=== PATIENT | male | born 1950 | race Caucasian/White ===

== ENCOUNTER 2016-08-17 04:42 | Emergency (ER) | payer SELFPAY ==
[2016-08-17] MEDS ORDERED: ASPIRIN 81 MG TABLET, CHEWABLE PO ONE (04:43)
[2016-08-17 05:14] LABS: ABSOLUTE BASOPHILS # (AUTO) 0.1 10^3/uL (0.0-0.2); ABSOLUTE LYMPHOCYTES (AUTO) 0.7 10^3/uL (0.5-4.7); BASOPHILS % (AUTO) 0.7 % (0-2); EOSINOPHILS % (AUTO) 0.6 % (0-6); HEMATOCRIT 42.5 % (37.9-51.0); HEMOGLOBIN 14.2 g/dL (13.5-17.0); HGB HCT DIFFERENCE 0.1; LYMPHOCYTES % (AUTO) 9.4 % (13-45); MEAN CORPUSCULAR HEMOGLOBIN 29.7 pg (27.0-33.4); MEAN CORPUSCULAR HGB CONC 33.4 g/dL (32.0-36.0); MEAN CORPUSCULAR VOLUME 89 fl (80-97); MONOCYTES % (AUTO) 12.7 % (3-13); RED BLOOD COUNT 4.77 10^6/uL (4.35-5.55); RED CELL DISTRIBUTION WIDTH 14.8 % (11.5-14.0); SEGMENTED NEUTROPHILS % (AUTO) 76.6 % (42-78); WHITE BLOOD COUNT 7.8 10^3/uL (4.0-10.5)
--- NOTE | 2016-08-17 05:14 | ER Document Report ---
Doctor's Note Notes: 08/17/16 05:13 I performed a quick triage evaluation the patient. He is a 65-year-old male who is sent in for chest pain. Patient himself is not a very good historian. Patient says he feels fine. He cannot really tell me if he had chest pain earlier or not. He denies any pain at this time. He has no complaints. He does have pain is reproducible to palpation on the left side of his chest. The nurses have triage ordered a cardiac workup. Patient will be placed on a monitor his initial EKG shows no ischemic changes. Dictation of this chart was performed using voice recognition software; therefore, there may be some unintended grammatical errors.
--- NOTE | 2016-08-17 05:31 | ER Document Report ---
ED General - General Chief Complaint: Chest Wall Pain Stated Complaint: CHEST PAIN Time Seen by Provider: 08/17/16 05:21 Mode of Arrival: Medic Information source: Relative - Spoke with via telephone Cannot obtain history due to: Dementia - Patient unable to give history spoke with on the telephone also used [facility] records Notes: 65-year-old male presented to ED via EMS due to staff at the [facility] stating he had chest pain. Patient denies any pain in the emergency room. Spoke with his to get medical history when she called to check on him. She states she only medical history he has are also, his depression anxiety and peripheral neuropathy. She states she's had his appendix out he's had knee surgery and he had skin cancers removed. She states otherwise he is very healthy. She does state that he is allergic to morphine and he was a former smoker. She states she lives 3-4 hours away and got a call about 4:00 that he was having chest pain and she was very concerned so she called to check to see how he was. TRAVEL OUTSIDE OF THE [place] IN LAST 30 DAYS: No - HPI Onset: Yesterday Onset/Duration: Gone Quality of pain: No pain Severity: None Pain Level: Denies Associated symptoms: None Exacerbated by: Denies Relieved by: Denies Similar symptoms previously: No Recently seen / treated by doctor: Yes - Related Data Allergies/Adverse Reactions: morphine Adverse Reaction (Unknown, Verified 08/17/16 05:53) Past Medical History - General Information source: Relative - , Emergency Med Personnel Cannot obtain history due to: Dementia - Social History Smoking Status: Former Smoker Cigarette use (# per day): No Chew tobacco use (# tins/day): No Smoking Education Provided: No Frequency of alcohol use: None Drug Abuse: None Lives with: Other - Alzheimer[facility] facility Family History: Other - Unable to obtain patient has demented Patient has suicidal ideation: No Patient has homicidal ideation: No - Past Medical History Cardiac Medical History: Reports: None Pulmonary Medical History: Reports: None EENT Medical History: Reports: None Neurological Medical History: Reports: Other - Alzheimer's and dementia Endocrine Medical History: Reports: None Renal/ Medical History: Reports: None Malignancy Medical History: Reports Hx Skin Cancer GI Medical History: Reports: None Musculoskeltal Medical History: Reports Hx Musculoskeletal Trauma Skin Medical History: Reports None Psychiatric Medical History: Reports: Hx Anxiety, Hx Dementia, Hx Depression Traumatic Medical History: Reports: None Infectious Medical History: Reports: None Past Surgical History: Reports: Hx Appendectomy, Hx Orthopedic Surgery - Knee surgery about 40 years ago or more according to , Other - Removal of skin cancer - Immunizations Immunizations up to date: Yes Review of Systems - Review of Systems Constitutional: No symptoms reported EENT: No symptoms reported Cardiovascular: No symptoms reported Respiratory: No symptoms reported Gastrointestinal: No symptoms reported Genitourinary: No symptoms reported Male Genitourinary: No symptoms reported Musculoskeletal: No symptoms reported Skin: No symptoms reported Hematologic/Lymphatic: No symptoms reported Neurological/Psychological: Dementia -: Yes All other systems reviewed and negative Physical Exam - Vital signs Vitals: Pulse Ox 99 08/17/16 04:43 Interpretation: Normal - General General appearance: Appears well, Alert - HEENT Head: Normocephalic, Atraumatic Eyes: Normal Pupils: PERRL - Respiratory Respiratory status: No respiratory distress Chest status: Nontender Breath sounds: Normal Chest palpation: Normal - Cardiovascular Rhythm: Regular Heart sounds: Normal auscultation Murmur: No - Abdominal Inspection: Normal Distension: No distension Bowel sounds: Normal Tenderness: Nontender Organomegaly: No organomegaly - Back Back: Normal, Nontender - Extremities General upper extremity: Normal inspection, Nontender, Normal color, Normal ROM , Normal temperature General lower extremity: Normal inspection, Nontender, Normal color, Normal ROM , Normal temperature, Normal weight bearing. No: Ludmila's sign - Neurological Neuro grossly intact: Yes Cognition: Confused, Other - Dementia Orientation: Disoriented to person, Disoriented to place, Disoriented to time, Disoriented to events Deepwater Coma Scale Eye Opening: Spontaneous [place] Coma Scale Verbal: None - He has dementia Deep[place] Coma Scale Motor: None - He moves arms and legs freely but has dementia and does not answer or follow instructions [place] Coma Scale Total: 6 Motor strength normal: LUE, RUE, LLE, RLE Sensory: Normal - Psychological Associated symptoms: Normal affect, Normal mood - Skin Skin Temperature: Warm Skin Moisture: Dry Skin Color: Normal Course - Re-evaluation Re-evalutation: 08/17/16 06:[address] Beckwith was can results of labs x-ray and with conversation to patient's . We'll discharge back to the arc as patient is not having any signs or symptoms of any cardiac event. - Vital Signs Vital signs: Temp Pulse Resp BP Pulse Ox 97.8 F 59 L 16 132/75 H 99 08/17/16 05:09 08/17/16 05:09 08/17/16 05:09 08/17/16 05:09 08/17/16 05:09 - Laboratory Result Diagrams: 08/17/16 04:55 08/17/16 05:49 Laboratory results interpreted by me: 08/17/16 04:55 RDW 14.8 H Lymphocytes % 9.4 L - Diagnostic Test Radiology reviewed: Image reviewed, Reports reviewed - EKG Interpretation by Me EKG shows normal: Sinus rhythm Rate: Normal Rhythm: NSR [place]/QRS: Left axis deviation Discharge - Discharge Clinical Impression: Chest wall pain Condition: Stable Disposition: HOME-SNF (ED ONLY) Additional Instructions: CHEST WALL PAIN: Your chest pain may be coming from the chest wall. This is often caused by straining the muscles or joints in the chest during physical activity, direct trauma, coughing, or vigorous vomiting. Persons with arthritis are especially prone to this type of pain, due to inflammation of the cartilage joints near the breast bone. Occasionally, no cause can be found. Rest from strenuous physical activity. This kind of chest pain is usually made worse by movement of the chest. Depending on the symptoms, we may prescribe medicine for pain, muscle relaxation, and antiinflammatory effects. If the pain is new, and seems to be due to muscle strain, cold packs can help. Otherwise, apply gentle warmth to the painful area for 15 minutes every hour or two. You should call contact the doctor immediately if things change. Further evaluation is needed if you develop a fever or cough, if the nature of the pain changes, or if you become short of breath. NORMAL EXAM AND WORKUP: At this time, your examination and workup show no significant abnormality. No significant abnormal physical findings were noted. All laboratory, EKG, and imaging (x-ray, CT scans, ultrasound) studies that were ordered show no significant abnormality. Although your examination and all studies that were ordered showed no significant abnormal finding, there are no examinations and no studies that are 100% accurate. There is always the possibility that some abnormality could exist and not be detected with physical examination or within the limits and capabilities of laboratory and other studies. You should return or follow up as you were instructed on your visit today for further evaluation if your symptoms do not resolve. Continue all current medications and treatments as prescribed by his primary doctor. Patient has negative chest x-ray negative labs and get of assessment. He will be returning to the ER with a copy of his labs and chest x-ray reports. FOLLOW-UP CARE: If you have been referred to a physician for follow-up care, call the physician s office for an appointment as you were instructed or within the next two days. If you experience worsening or a significant change in your symptoms, notify the physician immediately or return to the Emergency Department at any time for re-evaluation. Please follow-up with his primary doctor within the next 24-48 hours. Forms: Elevated Blood Pressure Referrals: SANDER REYES PA-C [NO LOCAL MD] - Follow up as needed
[2016-08-17 05:42] LABS: TROPONIN I < 0.012 ng/mL
[2016-08-17 06:11] LABS: ALANINE AMINOTRANSFERASE 32 U/L (21-72); ALBUMIN 3.9 g/dL (3.5-5.0); ALKALINE PHOSPHATASE 64 U/L (38-126); ANION GAP 10 (5-19); ASPARTATE AMINO TRANSFERASE 21 U/L (17-59); BILIRUBIN,DIRECT 0.3 mg/dL (0.0-0.4); BILIRUBIN,TOTAL 0.8 mg/dL (0.2-1.3); BLOOD UREA NITROGEN 12 mg/dL (7-20); CALCIUM 9.2 mg/dL (8.4-10.2); CARBON DIOXIDE 29 mmol/L (22-30); CHLORIDE 103 mmol/L (98-107); CREATINE KINASE 131 U/L (55-170); CREATININE RESULT 0.75 mg/dL (0.52-1.25); GLUCOSE 105 mg/dL (75-110); POTASSIUM 3.9 mmol/L (3.6-5.0); SODIUM 141.6 mmol/L (137-145); TOTAL PROTEIN 6.8 g/dL (6.3-8.2)
[2016-08-17 08:13] VITALS: BP 114/78
--- NOTE | 2016-08-17 17:02 | EKG REPORT ---
SEVERITY:- BORDERLINE ECG - SINUS RHYTHM LEFT AXIS DEVIATION BORDERLINE R WAVE PROGRESSION, ANTERIOR LEADS : Confirmed by: Ai Quarles 17-Aug-2016 17:01:24
== END 2016-08-17 08:47 ==
LOC: ER 04:42
DX: R07.89 Other chest pain (principal); G30.9 Alzheimer's disease, unspecified; F02.80 Dementia in other diseases classified elsewhere, unspecified severity, without behavioral disturbance, psychotic disturbance, mood disturbance, and anxiety; Z88.6 Allergy status to analgesic agent; Z85.828 Personal history of other malignant neoplasm of skin; Z87.891 Personal history of nicotine dependence
CPT/HCPCS: 36415; 71010; 80053; 82550; 82553; 84484; 85025; 93005; 93010; 99285

== ENCOUNTER 2016-09-02 00:43 | Emergency (ER) | payer MEDICARE ==
[2016-09-02] MEDS ORDERED: BACITRACIN ZINC OINTMENT 15 GM TP ONE (01:15)
--- NOTE | 2016-09-02 01:23 | ER Document Report ---
ED General - General Chief Complaint: Head Injury Stated Complaint: FALL, HEAD PAIN Time Seen by Provider: 09/02/16 01:06 Mode of Arrival: Medic Information source: Patient, Outside Facility Records Cannot obtain history due to: Dementia TRAVEL OUTSIDE OF THE [place] IN LAST 30 DAYS: No - HPI Notes: Patient is a 65-year-old male history of dementia comes from local group home with report that he fell out of his bed and was found on the ground with some bleeding from his right scalp. Patient has little recollection of the event, but staff at the group home states he is at his mental status baseline. Patient denies any headache, neck pain, chest pain, abdominal pain. There is no vomiting. No lethargy. nursing staff will look up and assess when his last tetanus shot was. - Related Data Allergies/Adverse Reactions: morphine Adverse Reaction (Unknown, Verified 08/17/16 05:53) Past Medical History - General Information source: Patient, Emergency Med Personnel Cannot obtain history due to: Dementia - Social History Smoking Status: Never Smoker Frequency of alcohol use: None Drug Abuse: None Lives with: [facility] Family History: Reviewed & Not Pertinent, Other - Unable to obtain patient has demented Renal/ Medical History: Denies: Hx Peritoneal Dialysis Malignancy Medical History: Reports Hx Skin Cancer Musculoskeltal Medical History: Reports Hx Musculoskeletal Trauma Psychiatric Medical History: Reports: Hx Anxiety, Hx Dementia, Hx Depression Past Surgical History: Reports: Hx Appendectomy, Hx Orthopedic Surgery - Knee surgery about 40 years ago or more according to , Other - Removal of skin cancer - Immunizations Immunizations up to date: Yes Hx Diphtheria, Pertussis, Tetanus Vaccination: Yes Review of Systems - Review of Systems Notes: REVIEW OF SYSTEMS: Somewhat questionable given the patient's dementia, but he does respond to questions. CONSTITUTIONAL : Denies fever, chills, or sweats. Denies recent illness. EENT: Denies eye, ear, throat, or mouth pain or symptoms. Denies nasal or sinus congestion or discharge. Denies throat, tongue, or mouth swelling or difficulty swallowing. CARDIOVASCULAR: Denies chest pain. Denies ankle edema. RESPIRATORY: Denies cough, cold, or chest congestion. Denies shortness of breath, difficulty breathing, or wheezing. GASTROINTESTINAL: Denies abdominal pain or distention. Denies nausea, vomiting , or diarrhea. Denies constipation. GENITOURINARY: Denies difficulty urinating, painful urination, burning, frequency, blood in urine, or discharge. MUSCULOSKELETAL: Denies back or neck pain or stiffness. Denies joint pain or swelling. SKIN: Contusion with abrasion/mild bleeding right scalp. HEMATOLOGIC : Denies easy bruising or bleeding. LYMPHATIC: Denies swollen, enlarged glands. NEUROLOGICAL: Denies passing out or loss of consciousness. Denies dizziness or lightheadedness. Denies headache. Denies weakness or paralysis or loss of use of either side. Denies sensory loss, numbness, or tingling. Denies seizures. Chronic dementia with some difficulty walking and speech deficits which are chronic. PSYCHIATRIC: Denies anxiety or stress. Denies depression, suicidal ideation, or homicidal ideation. ALL OTHER SYSTEMS REVIEWED AND NEGATIVE. Dictation was performed using [email or web address] recognition software Physical Exam - Notes Notes: PHYSICAL EXAMINATION: GENERAL: Well-appearing, well-nourished and in no acute distress. HEAD: Right scalp contusion and superficial abrasion. No obvious laceration noted. Bleeding has subsided. Otherwise atraumatic normocephalic. EYES: Pupils equal round and reactive to light, extraocular movements intact, sclera anicteric, conjunctiva are normal. ENT: Nares patent, oropharynx clear without exudates. Moist mucous membranes. NECK: Normal range of motion, supple without lymphadenopathy LUNGS: Breath sounds clear to auscultation bilaterally and equal. No wheezes rales or rhonchi. HEART: Regular rate and rhythm without murmurs ABDOMEN: Soft, nontender, nondistended abdomen. No guarding, no rebound. No masses appreciated. Musculoskeletal: Normal range of motion, no pitting or edema. No cyanosis. NEUROLOGICAL: Cranial nerves grossly intact. Normal sensory, motor exams. No unilateral deficits noted. Patient is alert to person, but not to place nor year. This is his baseline. No significant cerebellar ataxia. PSYCH: Normal mood, normal affect. SKIN: Warm, Dry, normal turgor, no rashes or lesions noted. Course - Re-evaluation Re-evalutation: 09/02/16 02:[address] negative for acute process. No mental status change or unilateral Neurologic findings suggestive for CVA. Antibiotic ointment applied to the wounds. Fall precautions suggested. 09/02/16 02:52 Discharge - Discharge Clinical Impression: Abrasion Head injury Qualifiers: Encounter type: initial encounter Qualified Code(s): S09.90XA - Unspecified injury of head, initial encounter Contusion Qualifiers: Encounter type: initial encounter Contusion area: head Condition: Stable Disposition: HOME-SNF (ED ONLY) Instructions: Head Injury Precautions ([facility]), Abrasions ([facility]), Abrasions of the Face ([facility]), Contusion ([facility]) Additional Instructions: Apply antibiotic ointment to the wounds twice a day as needed. Take precaution to try to prevent future falls.
--- NOTE | 2016-09-02 01:36 | RADIOLOGY REPORT (SQ) ---
EXAM DESCRIPTION: CT HEAD WITHOUT COMPLETED DATE/TIME: 09/02/2016 1:24 am REASON FOR STUDY: fall with head injury COMPARISON: None. TECHNIQUE: Axial images acquired through the brain without intravenous contrast. Images reviewed wi th bone, brain and subdural windows. Images stored on PACS. All CT scanners at this facility use dose modulation, iterative reconstruction, and/or weight based d osing when appropriate to reduce radiation dose to as low as reasonably achievable (ALARA). [facility]: Dose Right [facility]: CareDose [facility]: Dose Right [facility]: Teradose 4D [facility]: [employer] RADIATION DOSE: 55.22 mGy. LIMITATIONS: None. FINDINGS: VENTRICLES: Normal size and contour. CEREBRUM: [id number] cerebral volume loss. Mild white matter microangiopathy. CEREBELLUM: No masses. No hemorrhage. No alteration of density. No evidence for acute infarction. EXTRAAXIAL SPACES: No fluid collections. No masses. ORBITS AND GLOBE: No intra- or extraconal masses. Normal contour of globe without masses. CALVARIUM: No fracture. PARANASAL SINUSES: Moderate mucosal thickening/ mucous of the frontal sinuses and inferior left maxil radha sinus. SOFT TISSUES: No mass or hematoma. OTHER: No other significant finding. IMPRESSION: No acute findings. TECHNICAL DOCUMENTATION: JOB ID: [id number] Quality ID # [id number]: Final reports with documentation of one or more dose reduction techniques (e.g., Au tomated exposure control, adjustment of the mA and/or kV according to patient size, use of iterative reconstruction technique) 2010 [employer]- All Rights Reserved
[2016-09-02 04:00] VITALS: BP 138/74
== END 2016-09-02 04:00 ==
LOC: ER 00:43
DX: S00.03XA Contusion of scalp, initial encounter (principal); W06.XXXA Fall from bed, initial encounter; Y92.122 Bedroom in nursing home as the place of occurrence of the external cause; F03.90 Unspecified dementia, unspecified severity, without behavioral disturbance, psychotic disturbance, mood disturbance, and anxiety; Z85.828 Personal history of other malignant neoplasm of skin
CPT/HCPCS: 70450; 99284; J3490

== ENCOUNTER 2016-09-25 07:37 | Emergency (ER) | payer MEDICARE ==
--- NOTE | 2016-09-25 07:44 | ER Document Report ---
ED General - General Stated Complaint: FALL/TAIL BONE PAIN Time Seen by Provider: 09/25/16 07:39 Mode of Arrival: Medic Information source: Patient, Emergency Med Personnel, Outside Facility Records Notes: 65 yr old male presents from care facility with hx of dementia after a mechanical fall from his chair which was witnessed. pt initially complained of tail bone tenderness, currently denies any such concerns. pt denies any other injuries TRAVEL OUTSIDE OF THE [place] IN LAST 30 DAYS: No - HPI Onset: Just prior to arrival Onset/Duration: Sudden Quality of pain: Achy Severity: None Pain Level: Denies Associated symptoms: None Exacerbated by: Denies Relieved by: Denies Similar symptoms previously: No Recently seen / treated by doctor: No - Related Data Allergies/Adverse Reactions: morphine Adverse Reaction (Unknown, Verified 08/17/16 05:53) Past Medical History - Social History Smoking Status: Never Smoker Cigarette use (# per day): No Chew tobacco use (# tins/day): No Smoking Education Provided: No Family History: Reviewed & Not Pertinent, Other - Unable to obtain patient has demented Renal/ Medical History: Denies: Hx Peritoneal Dialysis Malignancy Medical History: Reports Hx Skin Cancer Musculoskeltal Medical History: Reports Hx Musculoskeletal Trauma Psychiatric Medical History: Reports: Hx Anxiety, Hx Dementia, Hx Depression Past Surgical History: Reports: Hx Appendectomy, Hx Orthopedic Surgery - Knee surgery about 40 years ago or more according to , Other - Removal of skin cancer - Immunizations Immunizations up to date: Yes Hx Diphtheria, Pertussis, Tetanus Vaccination: Yes Review of Systems - Review of Systems Notes: REVIEW OF SYSTEMS: CONSTITUTIONAL : Denies fever, chills, or sweats. Denies recent illness. EENT: Denies eye, ear, throat, or mouth pain or symptoms. Denies nasal or sinus congestion or discharge. Denies throat, tongue, or mouth swelling or difficulty swallowing. CARDIOVASCULAR: Denies chest pain. Denies palpitations or racing or irregular heart beat. Denies ankle edema. RESPIRATORY: Denies cough, cold, or chest congestion. Denies shortness of breath, difficulty breathing, or wheezing. GASTROINTESTINAL: Denies abdominal pain or distention. Denies nausea, vomiting , or diarrhea. Denies blood in vomitus, stools, or per rectum. Denies black, tarry stools. Denies constipation. GENITOURINARY: Denies difficulty urinating, painful urination, burning, frequency, blood in urine, or discharge. MUSCULOSKELETAL: Denies back or neck pain or stiffness. Denies joint pain or swelling. SKIN: Denies rash, lesions or sores. HEMATOLOGIC : Denies easy bruising or bleeding. LYMPHATIC: Denies swollen, enlarged glands. NEUROLOGICAL: Denies confusion or altered mental status. Denies passing out or loss of consciousness. Denies dizziness or lightheadedness. Denies headache. Denies weakness or paralysis or loss of use of either side. Denies problems with gait or speech. Denies sensory loss, numbness, or tingling. Denies seizures. PSYCHIATRIC: Denies anxiety or stress. Denies depression, suicidal ideation, or homicidal ideation. ALL OTHER SYSTEMS REVIEWED AND NEGATIVE. Dictation was performed using [email or web address] voice recognition software PHYSICAL EXAMINATION: GENERAL: Well-appearing, well-nourished and in no acute distress. HEAD: Atraumatic, normocephalic. EYES: Pupils equal round and reactive to light, extraocular movements intact, sclera anicteric, conjunctiva are normal. ENT: Nares patent, oropharynx clear without exudates. Moist mucous membranes. NECK: Normal range of motion, supple without lymphadenopathy LUNGS: Breath sounds clear to auscultation bilaterally and equal. No wheezes rales or rhonchi. HEART: Regular rate and rhythm without murmurs ABDOMEN: Soft, nontender, nondistended abdomen. No guarding, no rebound. No masses appreciated. Musculoskeletal: Normal range of motion, no pitting or edema. No cyanosis. NEUROLOGICAL: Normal sensorimotor exam GCS of 15, oriented to person and place currently PSYCH: Normal mood, normal affect. SKIN: Warm, Dry, normal turgor, no rashes or lesions noted. Physical Exam - Vital signs Vitals: Temp Pulse Resp BP Pulse Ox 97.4 F 57 L 20 126/67 H 96 09/25/16 07:52 09/25/16 07:52 09/25/16 07:52 09/25/16 07:52 09/25/16 07:52 Course - Re-evaluation Re-evalutation: 09/25/16 07:43 X-rays pending otherwise patient looks well is in no distress does not request any pain medication 09/25/16 08:44 X-ray is negative on my evaluation, patient otherwise looks well is ambulating with no difficulty I will discharge at this time back care facility After performing a Medical Screening Examination, I estimate there is LOW risk for INTRACRANIAL HEMORRHAGE, UNSTABLE SPINE FRACTURE, CENTRAL CORD SYNDROME, CAUDA EQUINA, THORACIC AORTIC DISSECTION, PNEUMOTHORAX, PERFORATED BOWEL, RUPTURED ABDOMINAL AORTIC ANEURYSM, ACUTE TENDON RUPTURE, COMPARTMENT SYNDROME, or OPEN FRACTURE, thus I consider the discharge disposition reasonable. Also, there is no evidence or peritonitis, sepsis, or toxicity. I have reevaluated this patient multiple times and no significant life threatening changes are noted. The patient and I have discussed the diagnosis and risks, and we agree with discharging home to follow-up with their primary doctor with the understanding that symptoms and presentations can change. We also discussed returning to the Emergency Department immediately if new or worsening symptoms occur. We have discussed the symptoms which are most concerning (e.g., bloody stool, fever, changing or worsening pain, vomiting) that necessitate immediate return. - Vital Signs Vital signs: Temp Pulse Resp BP Pulse Ox 97.4 F 57 L 20 126/67 H 96 09/25/16 07:52 09/25/16 07:52 09/25/16 07:52 09/25/16 07:52 09/25/16 07:52 - Diagnostic Test Radiology reviewed: Image reviewed, Reports reviewed - No acute fracture Discharge - Discharge Clinical Impression: Fall Qualifiers: Encounter type: initial encounter Qualified Code(s): W19.XXXA - Unspecified fall, initial encounter Contusion Qualifiers: Encounter type: initial encounter Contusion area: lower back Qualified Code(s) : S30.0XXA - Contusion of lower back and pelvis, initial encounter Condition: Stable Disposition: HOME, SELF-CARE Additional Instructions: Contusion Your injury has resulted in a contusion -- a crushing of the deep tissues. No injury to important structures was detected during the physician's exam. Contusions vary in the amount of pain they cause, and in the length of time required for healing. Typically, the area will become bruised, and will remain painful to touch for two or three weeks. However, most patients are back to working and playing within a few days. After the initial period of rest and cold-packs, your symptoms (together with the doctor's recommendations) will determine how rapidly you can get back to full activity. Usually this means "do what feels okay, but don't do things that hurt." If re-examination was recommended, it's important to follow up as instructed. Call the doctor or return any time if pain increases, if swelling becomes severe, if you develop numbness or weakness in an injured extremity, or if any other alarming symptoms occur. Follow up with your physician tomorrow for further care or return to the ED IMMEDIATELY if symptoms worsen or new concerns occur. If you cannot afford to follow up with your primary care physician a list of low cost clinics have been provided at the end of your discharge papers as well.
--- NOTE | 2016-09-25 08:58 | RADIOLOGY REPORT (SQ) ---
EXAM DESCRIPTION: SACRUM AND COCCYX COMPLETED DATE/TIME: 09/25/2016 8:05 am REASON FOR STUDY: fall COMPARISON: None. NUMBER OF VIEWS: Three views. TECHNIQUE: AP, lateral, and tilt views of the sacrum and coccyx. LIMITATIONS: Bones are osteoporotic. Artifact from the ball point pen at the upper edge of AP view, likely in the patient's clothing pocket. FINDINGS: MINERALIZATION: Osteoporotic BONES: No acute fracture or dislocation. No worrisome bone lesions. SOFT TISSUES: Surgical clips right lower quadrant. Artifact from a ball point pen over the AP view a t the upper edge of the field OTHER: Advanced osteoarthritis right hip IMPRESSION: No acute displaced fracture. Advanced osteoarthritis right hip. Bones are osteoporotic TECHNICAL DOCUMENTATION: JOB ID: [id number] [employer]- All Rights Reserved
[2016-09-25 09:31] VITALS: BP 145/78
== END 2016-09-25 09:30 | disposition home or self-care (01) ==
LOC: ER 07:37
DX: S30.0XXA Contusion of lower back and pelvis, initial encounter (principal); M53.3 Sacrococcygeal disorders, not elsewhere classified; W19.XXXA Unspecified fall, initial encounter
CPT/HCPCS: 72220; 99284

== ENCOUNTER 2016-10-04 11:09 | Emergency (ER) | payer MEDICARE ==
[2016-10-04 11:42] LABS: HEMOGLOBIN 13.4 g/dL (13.5-17.0); HGB HCT DIFFERENCE -0.8; MEAN CORPUSCULAR HEMOGLOBIN 29.8 pg (27.0-33.4); MEAN CORPUSCULAR HGB CONC 32.6 g/dL (32.0-36.0); MEAN CORPUSCULAR VOLUME 91 fl (80-97); RED BLOOD COUNT 4.49 10^6/uL (4.35-5.55); RED CELL DISTRIBUTION WIDTH 15.3 % (11.5-14.0); WHITE BLOOD COUNT 14.5 10^3/uL (4.0-10.5)
[2016-10-04 11:44] LABS: VENOUS BLOOD BASE EXCESS 2.1 mmol/L; VENOUS BLOOD HCO3 27.8 mmol/L (20-32); VENOUS BLOOD PCO2 47.5 mmHg (35-63); VENOUS BLOOD PH 7.39 (7.30-7.42)
--- NOTE | 2016-10-04 11:46 | RADIOLOGY REPORT (SQ) ---
EXAM DESCRIPTION: CHEST SINGLE VIEW COMPLETED DATE/TIME: 10/04/2016 11:38 am REASON FOR STUDY: bed 21 r/o sepsis per protocol COMPARISON: 08/17/2016 EXAM PARAMETERS: NUMBER OF VIEWS: One view. TECHNIQUE: Single frontal radiographic view of the chest acquired. RADIATION DOSE: NA LIMITATIONS: None. FINDINGS: LUNGS AND PLEURA: No opacities, masses or pneumothorax. No pleural effusion. MEDIASTINUM AND HILAR STRUCTURES: No masses. Contour normal. HEART AND VASCULAR STRUCTURES: Heart normal in size. Normal vasculature. BONES: No acute findings. HARDWARE: None in the chest. OTHER: No other significant finding. IMPRESSION: NO ACUTE RADIOGRAPHIC FINDING IN THE CHEST. TECHNICAL DOCUMENTATION: JOB ID: [id number]
[2016-10-04 11:49] LABS: PROTHROMBIN TIME 15.6 SEC (11.4-15.4)
[2016-10-04 12:07] LABS: ALANINE AMINOTRANSFERASE 30 U/L (21-72); ALBUMIN 3.5 g/dL (3.5-5.0); ALKALINE PHOSPHATASE 79 U/L (38-126); ANION GAP 9 (5-19); ASPARTATE AMINO TRANSFERASE 33 U/L (17-59); BILIRUBIN,DIRECT 0.3 mg/dL (0.0-0.4); BILIRUBIN,TOTAL 1.1 mg/dL (0.2-1.3); BLOOD UREA NITROGEN 16 mg/dL (7-20); CALCIUM 8.8 mg/dL (8.4-10.2); CARBON DIOXIDE 29 mmol/L (22-30); CHLORIDE 102 mmol/L (98-107); CREATININE RESULT 0.91 mg/dL (0.52-1.25); GLUCOSE 105 mg/dL (75-110); POTASSIUM 4.3 mmol/L (3.6-5.0); SODIUM 140.2 mmol/L (137-145); TOTAL PROTEIN 6.5 g/dL (6.3-8.2)
[2016-10-04 12:08] LABS: BASOPHILS % (MANUAL) 1 % (0-2); LYMPHOCYTES % (MANUAL) 2 % (13-45); RBC MORPHOLOGY COMMENT NORMO-CYTIC/CHROMIC; TOTAL CELLS COUNTED 100; TOXIC GRANULATION SLIGHT
[2016-10-04] MEDS ORDERED: ACETAMINOPHEN 325 MG SUPP.RECT PR ONE (12:23)
[2016-10-04 12:29] LABS: EOSINOPHILS % (MANUAL) 0 % (0-6)
[2016-10-04 12:33] LABS: APPEARANCE,URINE SLIGHTLY-CLOUDY; BILIRUBIN,URINE NEGATIVE (NEGATIVE); GLUCOSE, URINE NEGATIVE (NEGATIVE); KETONES,URINE NEGATIVE (NEGATIVE); LEUKOCYTE ESTERASE,URINE LARGE (NEGATIVE); NITRITE,URINE NEGATIVE (NEGATIVE); PROTEIN,URINE 30 mg/dL (NEGATIVE); URINE SPECIFIC GRAVITY 1.016
[2016-10-04 12:34] LABS: BACTERIA,URINE TRACE /HPF
[2016-10-04] MEDS ORDERED: CEFTRIAXONE 1 GM/D5W RTU 50 ML IV ONE (13:37)
[2016-10-04] MEDS ORDERED: NORMAL SALINE 1000 ML 1,000 ML IV ONE (13:40)
--- NOTE | 2016-10-04 13:40 | ER Document Report ---
ED General - General Chief Complaint: Altered Mental Status Stated Complaint: ALTERED MENTAL STATUS Time Seen by Provider: 10/04/16 11:36 Mode of Arrival: Ambulatory Information source: Patient Notes: Patient is a 65-year-old male who presents to the ER today from long term for possible altered mental status. Patient has a history of dementia and he states that he has "good days and bad days", bad days where he wants to get all. That is apparently what he is doing today. But they also state that today he has a fever. he has not been talking to them so they do not know if he is having any pain or other symptoms. He does not respond to questions. TRAVEL OUTSIDE OF THE [place] IN LAST 30 DAYS: No - Related Data Allergies/Adverse Reactions: morphine Adverse Reaction (Unknown, Verified 08/17/16 05:53) Past Medical History - General Information source: Patient - Social History Smoking Status: Unknown if Ever Smoked Family History: Reviewed & Not Pertinent, Other - Unable to obtain patient has demented Renal/ Medical History: Denies: Hx Peritoneal Dialysis Malignancy Medical History: Reports Hx Skin Cancer Musculoskeltal Medical History: Reports Hx Musculoskeletal Trauma Psychiatric Medical History: Reports: Hx Anxiety, Hx Dementia, Hx Depression Past Surgical History: Reports: Hx Appendectomy, Hx Orthopedic Surgery - Knee surgery about 40 years ago or more according to , Other - Removal of skin cancer - Immunizations Immunizations up to date: Yes Hx Diphtheria, Pertussis, Tetanus Vaccination: Yes Review of Systems - Review of Systems Constitutional: See HPI EENT: No symptoms reported Cardiovascular: No symptoms reported Respiratory: No symptoms reported Gastrointestinal: No symptoms reported Genitourinary: No symptoms reported Male Genitourinary: No symptoms reported Musculoskeletal: No symptoms reported Skin: No symptoms reported Hematologic/Lymphatic: No symptoms reported Neurological/Psychological: See HPI Physical Exam - Vital signs Vitals: Temp Pulse Resp BP Pulse Ox 100.7 F H 92 18 148/75 H 97 10/04/16 11:10 10/04/16 11:10 10/04/16 11:10 10/04/16 11:10 10/04/16 11:10 - Notes Notes: PHYSICAL EXAMINATION: GENERAL: Demented, in no acute distress. HEAD: Atraumatic, normocephalic. EYES: Pupils equal round and reactive to light, extraocular movements intact, sclera anicteric, conjunctiva are normal. ENT: Airway patent NECK: Normal range of motion, supple without lymphadenopathy LUNGS: CTAB and equal. No wheezes rales or rhonchi. HEART: Regular rate and rhythm without murmurs ABDOMEN: Soft, no tenderness. No guarding, no rebound BACK: no vertebral tenderness, normal ROM GI/: no CVA tenderness EXTREMITIES: no pitting edema. No cyanosis. NEUROLOGICAL: Unable to evaluate PSYCH: Unable to evaluate SKIN: Warm, Dry, normal turgor, no rashes or lesions noted Course - Re-evaluation Re-evalutation: 10/04/16 15:00 Patient has white count of 14.5, afebrile 103F rectally. Patient received rectal Tylenol, 1 fever reduced patient did wake up and start answering some questions appropriately, he did not answer all questions. Urinalysis revealed infection with large leukocytes and small blood. Patient given IV Rocephin and fluids here. Patient will be started on antibiotics and sent back to long term. Did discuss case with Dr. Landaverde who agrees with my plan. Lactic acid was normal. Vital signs other than temperature are all within normal limits. Patient is not tachycardic or hypotensive. 10/04/16 15:01 - Vital Signs Vital signs: Temp Pulse Resp BP Pulse Ox 103.1 F H 92 18 141/79 H 100 10/04/16 13:01 10/04/16 11:10 10/04/16 12:00 10/04/16 12:00 10/04/16 12:00 - Laboratory Result Diagrams: 10/04/16 11:27 10/04/16 11:27 Laboratory results interpreted by me: 10/04/16 10/04/16 10/04/16 11:12 11:27 12:00 WBC 14.5 H Hgb 13.4 L RDW 15.3 H Seg Neuts % (Manual) 94 H Lymphocytes % (Manual) 2 L Monocytes % (Manual) 2 L Abs Neuts (Manual) 13.6 H Abs Lymphs (Manual) 0.4 L PT 15.6 H Urine Protein 30 H Urine Blood SMALL H Urine Urobilinogen 8.0 H Ur Leukocyte Esterase LARGE H Discharge - Discharge Clinical Impression: UTI (urinary tract infection) Qualifiers: Urinary tract infection type: site unspecified Hematuria presence: with hematuria Qualified Code(s): N39.0 - Urinary tract infection, site not specified ; R31.9 - Hematuria, unspecified Condition: Stable Disposition: HOME, SELF-CARE Additional Instructions: Return immediately for any new or worsening symptoms. Follow up with primary care provider, call tomorrow to make followup appointment. Prescriptions: Cephalexin Monohydrate [Keflex 500 mg Capsule] 500 mg PO Q6H 10 Days
[2016-10-04 18:01] VITALS: BP 134/75
--- NOTE | 2016-10-04 18:55 | EKG REPORT ---
SEVERITY:- ABNORMAL ECG - SINUS RHYTHM LEFT ANTERIOR FASCICULAR BLOCK : Confirmed by: Ai Quarles 04-Oct-2016 18:54:32
== END 2016-10-04 18:00 ==
LOC: ER 11:09
DX: N39.0 Urinary tract infection, site not specified (principal); R31.9 Hematuria, unspecified; R50.9 Fever, unspecified; F03.90 Unspecified dementia, unspecified severity, without behavioral disturbance, psychotic disturbance, mood disturbance, and anxiety; Z85.828 Personal history of other malignant neoplasm of skin
CPT/HCPCS: 93005; 99285; 96361; 51701; 96365; 36415; 87040; 87086; 85025; 85610; 87088; 80053; 81001; 87186; 82803; 83605; 71010; 93010; A9270; J7030; J0696; J3490

== ENCOUNTER 2016-10-12 01:27 | Emergency (ER) | payer MEDICARE ==
--- NOTE | 2016-10-12 02:07 | ER Document Report ---
ED Fall - General Chief Complaint: Altered Mental Status Stated Complaint: AMS Time Seen by Provider: 10/12/16 01:54 Notes: Patient is a 65-year-old male that comes emergency department for chief complaint of altered mental status, he comes by EMS [id number] , patient was reportedly acting normally, was left for a few minutes, when staff came back he had gotten up and fallen on the floor. A bruise to the left forehead was noted. They denied change in mental status, patient has a history of dementia, he is not listed to be on a blood thinner, he is currently on antibiotic Keflex, he is treated with Risperdal, trazodone, Ativan. TRAVEL OUTSIDE OF THE [place] IN LAST 30 DAYS: No - Related data Allergies/Adverse Reactions: morphine Adverse Reaction (Unknown, Verified 08/17/16 05:53) Past Medical History - General Information source: Transfer Record, Emergency Med Personnel - Social History Smoking Status: Unknown if Ever Smoked Frequency of alcohol use: None Drug Abuse: None Lives with: Prison Family History: Reviewed & Not Pertinent, Other - Unable to obtain patient has demented Renal/ Medical History: Denies: Hx Peritoneal Dialysis Malignancy Medical History: Reports Hx Skin Cancer Musculoskeltal Medical History: Reports Hx Musculoskeletal Trauma Psychiatric Medical History: Reports: Hx Anxiety, Hx Dementia, Hx Depression Past Surgical History: Reports: Hx Appendectomy, Hx Orthopedic Surgery - Knee surgery about 40 years ago or more according to , Other - Removal of skin cancer - Immunizations Immunizations up to date: Yes Hx Diphtheria, Pertussis, Tetanus Vaccination: Yes Review of Systems - Review of Systems Constitutional: No symptoms reported EENT: No symptoms reported Cardiovascular: No symptoms reported Respiratory: No symptoms reported Gastrointestinal: No symptoms reported Genitourinary: No symptoms reported Male Genitourinary: No symptoms reported Musculoskeletal: See HPI Skin: No symptoms reported Hematologic/Lymphatic: No symptoms reported Neurological/Psychological: See HPI Physical Exam - Vital signs Vitals: Temp Pulse Resp BP Pulse Ox 97.6 F 56 L 12 147/86 H 96 10/12/16 01:32 10/12/16 01:32 10/12/16 01:32 10/12/16 01:32 10/12/16 01:32 Interpretation: Normal - General General appearance: Appears well, Alert In distress: None - HEENT Head: Normocephalic. No: Atraumatic - There is a faint bruise over the left forehead area, no swelling, no other signs of trauma Eyes: Normal Conjunctiva: Normal Extraocular movements intact: Yes Eyelashes: Normal Pupils: PERRL Ears: Normal External canal: Normal Tympanic membrane: Normal Sinus: Normal Nasal: Normal Mouth/Lips: Normal Mucous membranes: Normal Pharynx: Normal Neck: Normal - Respiratory Respiratory status: No respiratory distress Chest status: Nontender Breath sounds: Normal Chest palpation: Normal - Cardiovascular Rhythm: Regular Heart sounds: Normal auscultation Murmur: No - Abdominal Inspection: Normal Distension: No distension Bowel sounds: Normal Tenderness: Nontender Organomegaly: No organomegaly - Back Back: Normal, Nontender - Extremities General upper extremity: Normal inspection, Nontender, Normal color, Normal ROM , Normal temperature General lower extremity: Normal inspection, Nontender, Normal color, Normal ROM , Normal temperature, Normal weight bearing. No: Ludmila's sign - Neurological Neuro grossly intact: Yes Cognition: Confused Orientation: Disoriented to place, Disoriented to time, Disoriented to events. No: Disoriented to person [place] Coma Scale Eye Opening: Spontaneous [place] Coma Scale Verbal: Confused [place] Coma Scale Motor: Obeys Commands [place] Coma Scale Total: 14 Speech: Normal Cranial nerves: Normal Cerebellar coordination: Normal Motor strength normal: LUE, RUE, LLE, RLE Additional motor exam normals: Equal card folder Sensory: Normal - Psychological Associated symptoms: Normal mood. No: Normal affect - Flat affect - Skin Skin Temperature: Warm Skin Moisture: Dry Skin Color: Normal Course - Re-evaluation Re-evalutation: Patient has a flat affect, however he is cooperative, he is oriented to self, he does not have any neurological deficit on examination other than confusion which is reported to be baseline. There is a small bruise over his left forehead, CAT scan imaging unremarkable, no evidence of other injury over the rest of his exam. Patient discharged back to nursing facility with return precautions. - Vital Signs Vital signs: Temp Pulse Resp BP Pulse Ox 97.6 F 56 L 9 L 145/79 H 100 10/12/16 02:25 10/12/16 01:32 10/12/16 05:53 10/12/16 05:53 10/12/16 05:53 Discharge - Discharge Clinical Impression: Fall Qualifiers: Encounter type: initial encounter Qualified Code(s): W19.XXXA - Unspecified fall, initial encounter Head injury Qualifiers: Encounter type: initial encounter Qualified Code(s): S09.90XA - Unspecified injury of head, initial encounter Traumatic hematoma of forehead Qualifiers: Encounter type: initial encounter Qualified Code(s): S00.83XA - Contusion of other part of head, initial encounter Condition: Stable Disposition: HOME, SELF-CARE Additional Instructions: CAT scan of the head and neck show no abnormalities, vital signs unremarkable, no acute abnormalities noted other than the hematoma on the left forehead. Ice the area, Tylenol for pain if needed. Follow-up with primary care. Return to emergency department for any concerning or worsening symptoms including change in mental status, vomiting, seizure, or any other concerning symptoms.
--- NOTE | 2016-10-12 02:45 | RADIOLOGY REPORT (SQ) ---
EXAM DESCRIPTION: CT HEAD WITHOUT COMPLETED DATE/TIME: 10/12/2016 2:29 am REASON FOR STUDY: fall, head injury COMPARISON: 5.25.17 TECHNIQUE: Axial images acquired through the brain without intravenous contrast. Images reviewed wi th bone, brain and subdural windows. Images stored on PACS. All CT scanners at this facility use dose modulation, iterative reconstruction, and/or weight based d osing when appropriate to reduce radiation dose to as low as reasonably achievable (ALARA). [facility]: Dose Right [facility]: CareDose [facility]: Dose Right [facility]: Teradose 4D [facility]: Smart [employer] RADIATION DOSE: Up-to-date CT equipment and radiation dose reduction techniques were employed. CTDIv ol: 55.2 mGy. DLP: 1084 mGy-cm. mGy. LIMITATIONS: None. FINDINGS: VENTRICLES: Normal size and contour. CEREBRUM: No masses. No hemorrhage. No midline shift. Normal ashton/white matter differentiation. N o evidence for acute infarction. Moderate cerebral volume loss. Mild white matter microangiopathy p attern. CEREBELLUM: No masses. No hemorrhage. No alteration of density. No evidence for acute infarction. EXTRAAXIAL SPACES: No fluid collections. No masses. ORBITS AND GLOBE: No intra- or extraconal masses. Normal contour of globe without masses. CALVARIUM: No fracture. PARANASAL SINUSES: No fluid or mucosal thickening. SOFT TISSUES: No mass or hematoma. OTHER: No other significant finding. IMPRESSION: No acute findings. TECHNICAL DOCUMENTATION: JOB ID: [id number] Quality ID # [id number]: Final reports with documentation of one or more dose reduction techniques (e.g., Au tomated exposure control, adjustment of the mA and/or kV according to patient size, use of iterative reconstruction technique) 2010 [employer]- All Rights Reserved
--- NOTE | 2016-10-12 02:47 | RADIOLOGY REPORT (SQ) ---
EXAM DESCRIPTION: CT CERVICAL SPINE WITHOUT COMPLETED DATE/TIME: 10/12/2016 2:30 am REASON FOR STUDY: fall, head injury COMPARISON: None. TECHNIQUE: Axial images acquired through the cervical spine without intravenous contrast. Images re viewed with lung, soft tissue and bone windows. Reconstructed coronal and sagittal MPR images review ed. Images stored on PACS. All CT scanners at this facility use dose modulation, iterative reconstruction, and/or weight based d osing when appropriate to reduce radiation dose to as low as reasonably achievable (ALARA). [facility]: Dose Right [facility]: CareDose [facility]: Dose Right [facility]: Teradose 4D [facility]: Smart [employer] RADIATION DOSE: Up-to-date CT equipment and radiation dose reduction techniques were employed. CTDIv ol: 9.5 mGy. DLP: 200 mGy-cm. mGy. LIMITATIONS: None. FINDINGS: ALIGNMENT: Anatomic. Moderate rotatory levo convexity of the cervical spine. MINERALIZATION: Normal. VERTEBRAL BODIES: No fractures or dislocation. Moderate atlantoaxial osteoarthritis. DISCS: Small disc bulge/osteophyte complex at the C5-C6 level. FACETS, LATERAL MASSES, POSTERIOR ELEMENTS: No fractures. No dislocation. No acute findings. HARDWARE: None in the spine. VISUALIZED RIBS: No fractures. LUNG APICES AND SOFT TISSUES: No significant or acute findings. OTHER: No other significant finding. IMPRESSION: No acute findings. TECHNICAL DOCUMENTATION: JOB ID: [id number] Quality ID # [id number]: Final reports with documentation of one or more dose reduction techniques (e.g., Au tomated exposure control, adjustment of the mA and/or kV according to patient size, use of iterative reconstruction technique) 2010 [employer]- All Rights Reserved
[2016-10-12 06:13] VITALS: BP 145/79
== END 2016-10-12 05:57 | disposition home or self-care (01) ==
LOC: ER 01:27
DX: S00.83XA Contusion of other part of head, initial encounter (principal); W19.XXXA Unspecified fall, initial encounter; Y92.129 Unspecified place in nursing home as the place of occurrence of the external cause; F03.90 Unspecified dementia, unspecified severity, without behavioral disturbance, psychotic disturbance, mood disturbance, and anxiety; F41.9 Anxiety disorder, unspecified; F32.9 Major depressive disorder, single episode, unspecified; Z79.899 Other long term (current) drug therapy; Z85.828 Personal history of other malignant neoplasm of skin
CPT/HCPCS: 70450; 72125; 99285

== ENCOUNTER 2016-11-23 06:06 | Emergency (ER) | payer MEDICARE ==
[2016-11-23] MEDS ORDERED: LIDOCAINE 2% URO-JET 5 ML KIT MM ONE (06:47)
--- NOTE | 2016-11-23 07:52 | ER Document Report ---
ED Fall - General Chief Complaint: Fall Stated Complaint: FALL,HEAD INJURY Time Seen by Provider: 11/23/16 07:04 Mode of Arrival: Medic Information source: Emergency Med Personnel, Outside Facility Records Notes: Patient is a 66-year-old male with dementia who [facility] in a prison who presents to the ER via EMS today from the prison after they found him on the floor between 3 and 6 AM. Patient is denying any pain, does have small abrasion to the forehead, not bleeding. He denies chest pain, shortness of breath. He is at his baseline mentally. He denies any headache. He does not remember the incident, but this is his baseline. TRAVEL OUTSIDE OF THE [place] IN LAST 30 DAYS: No - Related data Allergies/Adverse Reactions: morphine Adverse Reaction (Unknown, Verified 08/17/16 05:53) Past Medical History - General Information source: Patient - Social History Smoking Status: Never Smoker Family History: Reviewed & Not Pertinent, Other - Unable to obtain patient has demented Renal/ Medical History: Denies: Hx Peritoneal Dialysis Malignancy Medical History: Reports Hx Skin Cancer Musculoskeltal Medical History: Reports Hx Musculoskeletal Trauma Psychiatric Medical History: Reports: Hx Anxiety, Hx Dementia, Hx Depression Past Surgical History: Reports: Hx Appendectomy, Hx Orthopedic Surgery - Knee surgery about 40 years ago or more according to , Other - Removal of skin cancer - Immunizations Immunizations up to date: Yes Hx Diphtheria, Pertussis, Tetanus Vaccination: Yes Review of Systems - Review of Systems Constitutional: No symptoms reported EENT: No symptoms reported Cardiovascular: No symptoms reported Respiratory: No symptoms reported Gastrointestinal: No symptoms reported Genitourinary: No symptoms reported Male Genitourinary: No symptoms reported Musculoskeletal: No symptoms reported Skin: No symptoms reported Hematologic/Lymphatic: No symptoms reported Neurological/Psychological: No symptoms reported Physical Exam - Vital signs Vitals: Pulse Ox 100 11/23/16 06:21 - Notes Notes: PHYSICAL EXAMINATION: GENERAL: Demented, in no acute distress. HEAD: Atraumatic, normocephalic. EYES: Pupils equal round and reactive to light, extraocular movements intact, sclera anicteric, conjunctiva are normal. NECK: Normal range of motion, supple without lymphadenopathy LUNGS: CTAB and equal. No wheezes rales or rhonchi. HEART: Regular rate and rhythm without murmurs ABDOMEN: Soft, no tenderness. No guarding, no rebound BACK: no vertebral tenderness, normal ROM GI/: no CVA tenderness EXTREMITIES: no pitting edema. No cyanosis. NEUROLOGICAL: Unable to assess due to dementia PSYCH: Demented SKIN: Warm, Dry, normal turgor, small abrasion to the forehead, dried blood but no active bleeding Course - Re-evaluation Re-evalutation: 11/23/16 08:25 Patient is on blood thinners, patient has not had any complaints, he was just found beside his bed in the prison today brought him here. my attending, Dr. Pereira, and I do not believe any workup is required today as he is at his baseline. 11/23/16 08:25 - Vital Signs Vital signs: Temp Pulse Resp BP Pulse Ox 98 F 58 L 16 118/83 98 11/23/16 06:32 11/23/16 06:32 11/23/16 06:32 11/23/16 06:32 11/23/16 06:32 Discharge - Discharge Clinical Impression: Fall Qualifiers: Encounter type: initial encounter Qualified Code(s): W19.XXXA - Unspecified fall, initial encounter Condition: Stable Disposition: HOME, SELF-CARE Additional Instructions: Return immediately for any new or worsening symptoms. Follow up with primary care provider, call tomorrow to make followup appointment.
--- NOTE | 2016-11-23 07:57 | EKG REPORT ---
SEVERITY:- BORDERLINE ECG - SINUS RHYTHM BORDERLINE LEFT AXIS DEVIATION BORDERLINE R WAVE PROGRESSION, ANTERIOR LEADS : Confirmed by: Kadeem Arora MD 23-Nov-2016 07:56:33
[2016-11-23 09:45] VITALS: BP 125/86
== END 2016-11-23 10:09 | disposition home or self-care (01) ==
LOC: ER 06:06
DX: S09.90XA Unspecified injury of head, initial encounter (principal); S00.81XA Abrasion of other part of head, initial encounter; F03.90 Unspecified dementia, unspecified severity, without behavioral disturbance, psychotic disturbance, mood disturbance, and anxiety; X58.XXXA Exposure to other specified factors, initial encounter; Z79.02 Long term (current) use of antithrombotics/antiplatelets; Z88.6 Allergy status to analgesic agent
CPT/HCPCS: 93005; 93010; 99284

== ENCOUNTER 2016-12-02 15:02 | Emergency (ER) | payer MEDICARE ==
--- NOTE | 2016-12-02 15:43 | ER Document Report ---
ED Fall - General Chief Complaint: Fall Stated Complaint: FALL,BACK PAIN Time Seen by Provider: 12/02/16 15:25 Mode of Arrival: Medic Information source: Transfer Record, Emergency Med Personnel Notes: This is a 66-year-old man with a history of dementia with prior falls in the past who was brought in by EMS after an unwitnessed fall at the [facility]. EMS reports that the patient was found in another resident's room and was on the floor. The patient was not complaining of any pain. In the emergency room , the patient is alert and demented and is reported to be at his baseline mental status. He denies pain. TRAVEL OUTSIDE OF THE [place] IN LAST 30 DAYS: No - HPI Occurred: Just prior to arrival Where: [facility] Context: Fell from standing Associated symptoms: None Location of injury/pain: No: Abdomen, Ankle, Back, Breast, Buttocks, Chest, Elbow, Epigastric, Face, Finger, Flank, Foot, Hand, Head, Hip, Mouth, Knee, Neck , Pelvic, Penis, Perineum, Rectum, Shoulder, Testicle, Thigh, Throat, Trunk, Vagina, Wrist, Upper extremity, Lower extremity, Other Quality of pain: No pain Severity: None Pain Level: Denies - Related data Allergies/Adverse Reactions: morphine Adverse Reaction (Unknown, Verified 08/17/16 05:53) Past Medical History - General Information source: Patient, Transfer Record, Emergency Med Personnel - Social History Smoking Status: Never Smoker Cigarette use (# per day): No Chew tobacco use (# tins/day): No Frequency of alcohol use: None Drug Abuse: None Lives with: [facility] Family History: Reviewed & Not Pertinent, Other - Unable to obtain patient has demented Patient has suicidal ideation: No Patient has homicidal ideation: No - Past Medical History Cardiac Medical History: Reports: None Pulmonary Medical History: Reports: None Neurological Medical History: Reports: Other - Dementia Renal/ Medical History: Denies: Hx Peritoneal Dialysis Malignancy Medical History: Reports Hx Skin Cancer Musculoskeltal Medical History: Reports Hx Musculoskeletal Trauma Psychiatric Medical History: Reports: Hx Anxiety, Hx Dementia, Hx Depression Past Surgical History: Reports: Hx Appendectomy, Hx Orthopedic Surgery - Knee surgery about 40 years ago or more according to , Other - Removal of skin cancer - Immunizations Immunizations up to date: Yes Hx Diphtheria, Pertussis, Tetanus Vaccination: Yes Review of Systems - Review of Systems Constitutional: denies: Chills, Fever EENT: No symptoms reported Cardiovascular: No symptoms reported Respiratory: No symptoms reported Gastrointestinal: No symptoms reported Genitourinary: No symptoms reported Male Genitourinary: No symptoms reported Musculoskeletal: No symptoms reported Skin: No symptoms reported Hematologic/Lymphatic: No symptoms reported Neurological/Psychological: See HPI Physical Exam - Vital signs Notes: Physical exam: GENERAL: This is a 66-year-old man who is alert, eyes are open, he will answer simple questions, he is reported to be at his baseline mentally which is demented. HEAD: Atraumatic, normocephalic. I palpated his whole scalp and there is no areas of tenderness. EYES: Pupils equal round and reactive to light, extraocular movements intact, sclera anicteric, conjunctiva are normal. ENT: nares patent, oropharynx clear without exudates. Moist mucous membranes. NECK: The patient's cervical spine is palpated and is nontender. Anteriorly, there are no masses. LUNGS: Breath sounds clear to auscultation bilaterally and equal. No wheezes rales or rhonchi. HEART: Regular rate and rhythm without murmurs, rubs or gallops. ABDOMEN: Soft, normoactive bowel sounds. No tenderness to palpation. No guarding, no rebound. No masses appreciated. Back: There is no tenderness over the thoracic or lumbar spine. the skin to the back appears dry, but there is no tenderness with palpation. EXTREMITIES: Normal range of motion, no pitting or edema. No clubbing or cyanosis. NEUROLOGICAL: He does move extremities without pain. PSYCH: Dementia SKIN: Warm, Dry, normal turgor, no rashes or lesions noted. Discharge - Discharge Clinical Impression: Fall Condition: Stable Disposition: HOME, SELF-CARE Additional Instructions: The patient's physical exam was quite good. The plan is to continue current medicines and return if there is any problems.
[2016-12-02 17:06] VITALS: BP 126/77
== END 2016-12-02 17:05 | disposition home or self-care (01) ==
LOC: ER 15:02
DX: M54.9 Dorsalgia, unspecified (principal); W19.XXXA Unspecified fall, initial encounter
CPT/HCPCS: 99284

== ENCOUNTER 2016-12-06 22:55 | Emergency (ER) | payer MEDICARE ==
--- NOTE | 2016-12-07 01:05 | ER Document Report ---
ED Fall - General Chief Complaint: Fall Stated Complaint: POSSIBLE FALL Time Seen by Provider: 12/06/16 23:19 Mode of Arrival: Medic Information source: Transfer Record Cannot obtain history due to: Dementia Notes: Patient was reportedly found by [facility] staff on the floor. Staff can sure if patient may have fallen or if he had gone into another room and had laid down on the floor. Patient without any obvious injuries. Patient's mental status at his baseline per nurses. TRAVEL OUTSIDE OF THE [place] IN LAST 30 DAYS: No - HPI Occurred: Just prior to arrival Where: [facility] Associated symptoms: None Quality of pain: No pain - Related data Allergies/Adverse Reactions: morphine Adverse Reaction (Unknown, Verified 08/17/16 05:53) Past Medical History - General Information source: Transfer Record Cannot obtain history due to: Dementia - Social History Smoking Status: Unknown if Ever Smoked Frequency of alcohol use: None Drug Abuse: None Lives with: [facility] Family History: Reviewed & Not Pertinent, Other - Unable to obtain patient has demented Renal/ Medical History: Denies: Hx Peritoneal Dialysis Malignancy Medical History: Reports Hx Skin Cancer Musculoskeltal Medical History: Reports Hx Musculoskeletal Trauma Psychiatric Medical History: Reports: Hx Anxiety, Hx Dementia, Hx Depression Past Surgical History: Reports: Hx Appendectomy, Hx Orthopedic Surgery - Knee surgery about 40 years ago or more according to , Other - Removal of skin cancer - Immunizations Immunizations up to date: Yes Hx Diphtheria, Pertussis, Tetanus Vaccination: Yes Review of Systems - Review of Systems -: Yes ROS unobtainable due to patient's medical condition Physical Exam - Vital signs Vitals: Temp Pulse BP Pulse Ox 97.9 F 59 L 140/78 H 99 12/06/16 23:00 12/06/16 23:00 12/06/16 23:00 12/06/16 23:00 - General General appearance: Appears well, Other - sleeping, arouses easily to tactile stimulation and voice In distress: None - HEENT Head: Normocephalic, Atraumatic. No: Abrasions, Daugherty's sign, Ecchymosis, [place]'s eyes Eyes: Normal. No: Periorbital ecchymosis Conjunctiva: Normal Ears: Normal External canal: Normal Tympanic membrane: Normal. No: Hemotympanum Nasal: Normal Mouth/Lips: Normal. No: Dental fracture Neck: Normal, Supple. No: Lymphadenopathy - Respiratory Respiratory status: No respiratory distress Chest status: Nontender Breath sounds: Normal. No: Rales, Rhonchi, Stridor, Wheezing Chest palpation: Normal - Cardiovascular Rhythm: Regular Heart sounds: S1 appreciated, S2 appreciated - Abdominal Inspection: Normal Distension: No distension Bowel sounds: Normal Tenderness: Nontender - Back Back: Normal, Nontender. No: Vertebra tenderness - Extremities General upper extremity: Normal inspection, Nontender, Normal ROM General lower extremity: Normal inspection, Nontender, Normal ROM - Neurological Cognition: Other - normal per pt's baseline - Skin Skin Temperature: Warm Skin Moisture: Dry Skin Color: Normal Course - Re-evaluation Re-evalutation: 12/07/16 01:15 Patient without any complaints of pain, patient without any objective injury, contusion, swelling, abrasion or lacerations. - Vital Signs Vital signs: Temp Pulse Resp BP Pulse Ox 98.6 F 64 126/88 H 96 12/07/16 02:09 12/07/16 02:09 12/07/16 02:09 12/07/16 02:09 Discharge - Discharge Clinical Impression: Hx of fall Condition: Stable Disposition: HOME, SELF-CARE Additional Instructions: Return immediately for any new or worsening symptoms Followup with your primary care provider, call tomorrow to make a followup appointment Referrals: ELVIS STERN MD [NO LOCAL MD] - Follow up as needed
[2016-12-07 02:31] VITALS: BP 126/88
== END 2016-12-07 02:36 | disposition home or self-care (01) ==
LOC: ER 22:55
DX: Z04.3 Encounter for examination and observation following other accident (principal); W19.XXXA Unspecified fall, initial encounter; Y92.129 Unspecified place in nursing home as the place of occurrence of the external cause; F03.90 Unspecified dementia, unspecified severity, without behavioral disturbance, psychotic disturbance, mood disturbance, and anxiety; Z85.828 Personal history of other malignant neoplasm of skin
CPT/HCPCS: 99284

== ENCOUNTER 2016-12-13 15:12 | Emergency (ER) | payer MEDICARE ==
--- NOTE | 2016-12-13 15:24 | ER Document Report ---
ED General - General Stated Complaint: WEAKNESS Time Seen by Provider: 12/13/16 15:23 TRAVEL OUTSIDE OF THE [place] IN LAST 30 DAYS: No - HPI Notes: Patient is a 66-year-old male with a history of Alzheimer's who presents the ED via EMS with reports of left lower quadrant abdominal pain. The [facility] states that the patient was complaining of left lower quadrant abdominal pain today. EMS reported that the patient declined any pain and had no rebound/ guarding to palpation of the abdomen. He has been eating and drinking without any difficulties. He is having normal bowel movements and continuing to have wet diapers. EMS and the nursing report that, otherwise, he is at his baseline for mentation/behavior/speech. Pt is a poor historian, but is denying any pain currently when reviewing each system individually. - Related Data Allergies/Adverse Reactions: morphine Adverse Reaction (Unknown, Verified 08/17/16 05:53) Past Medical History - Social History Smoking Status: Unknown if Ever Smoked Family History: Reviewed & Not Pertinent, Other - Unable to obtain patient has demented Renal/ Medical History: Denies: Hx Peritoneal Dialysis Malignancy Medical History: Reports Hx Skin Cancer Musculoskeltal Medical History: Reports Hx Musculoskeletal Trauma Psychiatric Medical History: Reports: Hx Anxiety, Hx Dementia, Hx Depression Past Surgical History: Reports: Hx Appendectomy, Hx Orthopedic Surgery - Knee surgery about 40 years ago or more according to , Other - Removal of skin cancer - Immunizations Immunizations up to date: Yes Hx Diphtheria, Pertussis, Tetanus Vaccination: Yes Review of Systems - Review of Systems Notes: see HPI- -: Yes ROS unobtainable due to patient's medical condition Physical Exam - Vital signs Vitals: Temp Pulse Resp BP Pulse Ox 97.3 F 80 16 113/68 98 12/13/16 15:26 12/13/16 15:26 12/13/16 15:26 12/13/16 15:26 12/13/16 15:26 Notes: PHYSICAL EXAMINATION: GENERAL: Well-appearing, well-nourished and in no acute distress. Alert, pt responding to questions. HEAD: Atraumatic, normocephalic. EYES: Pupils equal round and reactive to light, extraocular movements intact, sclera anicteric, conjunctiva are normal. ENT: EAC clear b/l. TM's intact b/l without erythema, fluid, or perforation. Nares patent and without discharge. oropharynx clear without exudates. No tonsilar hypertrophy or erythema. Moist mucous membranes. No sinus tenderness. No facial swelling. No palatine shift. uvula midline. NECK: Normal range of motion, supple without lymphadenopathy. No rigidity/ meningismus/tenderness. LUNGS: Breath sounds clear to auscultation bilaterally and equal. No wheezes rales or rhonchi. HEART: Regular rate and rhythm without murmurs, rubs, gallops. ABDOMEN: Soft, nontender, nondistended abdomen. No guarding, no rebound. No masses appreciated. Normal bowel sounds present. No CVA tenderness bilaterally. : No obvious inguinal hernias noted. Non-tender to palp of penis/testicles. Musculoskeletal: Ext b/l: FROM to passive/active. Strength 5+/5. Pt moving all extremities. Extremities: No cyanosis, clubbing, or edema b/l. Peripheral pulses 2+. Capillary refill less than 3 seconds. NEUROLOGICAL: Cranial nerves grossly intact. Normal speech. Normal sensory, motor exams PSYCH: Flat affect. SKIN: Warm, Dry, normal turgor, no rashes or lesions noted. Course - Re-evaluation Re-evalutation: 12/13/16 20:[address] Leo: Patient is an afebrile, well-hydrated, 66-year-old male with a history of Alzheimer's dementia who presents the ED with constipation after thorough work up performed. Vitals are stable. PE otherwise unremarkable. CBC, CMP, lipase , urinalysis, chest x-ray, CT abd/pelv were unremarkable for any acute pathology. Low suspicion/risk for acute appendicitis, bowel obstruction, acute cholecystitis, perforated diverticulitis, incarcerated hernia, pancreatitis, perforated ulcer, peritonitis, sepsis, testicular torsion, or other systemic emergent condition at this time. Patient is aware (?understanding due to alzheimers) that his condition can change from initial presentation and he needs to monitor symptoms closely and seek medical attention if any acute changes. An enema was given in the ED which did produce a good BM. I will send him home with a Rx for miralax. Conservative measures otherwise for symptoms. Recheck with PCM in 2-3 days. Consider consult with a audio visual specialist. Return to the ED with any worsening/concerning symptoms otherwise as reviewed in discharge. Patient is in agreement. - Vital Signs Vital signs: Temp Pulse Resp BP Pulse Ox 97.3 F 80 16 113/68 98 12/13/16 15:26 12/13/16 15:26 12/13/16 15:26 12/13/16 15:26 12/13/16 15:26 - Laboratory Result Diagrams: 12/13/16 16:00 12/13/16 16:00 Laboratory results interpreted by me: 12/13/16 12/13/16 12/13/16 16:00 16:00 16:00 Hgb 13.4 L RDW 14.9 H Carbon Dioxide 33 H Total Protein 5.8 L Albumin 3.4 L Urine Blood SMALL H Discharge - Discharge Clinical Impression: Constipation Qualifiers: Constipation type: unspecified constipation type Qualified Code(s): K59.00 - Constipation, unspecified Condition: Stable Disposition: HOME, SELF-CARE Instructions: Abdominal Pain ([facility]), Constipation ([facility]) Additional Instructions: Maintain adequate fluid and food intake Increase fiber and water intake May use an enema on occasion if needed/warranted Take MiraLAX 1 cap daily consider consult with gastroenterology recheck with your PCM in 2-3 days Return to the ED with any worsening symptoms and/or development of fever, headache, chest pain, palpitations, syncope, shortness of breath, trouble breathing, abdominal pain, n/v/d, blood in stool/urine, or other worsening symptoms that are concerning to you. Prescriptions: Polyethylene Glycol 3350 [Miralax] 1 cap PO DAILY #527 powder Referrals: YUN LUNSFORD MD [Primary Care Provider] - Follow up in 3-5 days
[2016-12-13 15:33] VITALS: BP 113/68
--- NOTE | 2016-12-13 16:08 | RADIOLOGY REPORT (SQ) ---
EXAM DESCRIPTION: CHEST SINGLE VIEW COMPLETED DATE/TIME: 12/13/2016 4:00 pm REASON FOR STUDY: abdominal pain, weakness COMPARISON: 10/04/2016 EXAM PARAMETERS: NUMBER OF VIEWS: One view. TECHNIQUE: Single frontal radiographic view of the chest acquired. RADIATION DOSE: NA LIMITATIONS: None. FINDINGS: LUNGS AND PLEURA: No opacities, masses or pneumothorax. No pleural effusion. MEDIASTINUM AND HILAR STRUCTURES: No masses. Contour normal. HEART AND VASCULAR STRUCTURES: Heart normal in size. Normal vasculature. BONES: No acute findings. HARDWARE: None in the chest. OTHER: No other significant finding. IMPRESSION: NO ACUTE CARDIOPULMONARY PROCESS. NO SIGNIFICANT CHANGE FROM PRIOR STUDY. TECHNICAL DOCUMENTATION: JOB ID: [id number]
[2016-12-13 16:12] LABS: ABSOLUTE EOSINOPHILS # (AUTO) 0.1 10^3/uL (0.0-0.6); ABSOLUTE LYMPHOCYTES (AUTO) 0.8 10^3/uL (0.5-4.7); ABSOLUTE MONOCYTES (AUTO) 0.4 10^3/uL (0.1-1.4); ABSOLUTE NEUT (AUTO) 3.3 10^3/uL (1.7-8.2); BASOPHILS % (AUTO) 0.8 % (0-2); EOSINOPHILS % (AUTO) 1.5 % (0-6); HEMATOCRIT 38.9 % (37.9-51.0); HEMOGLOBIN 13.4 g/dL (13.5-17.0); HGB HCT DIFFERENCE 1.3; MEAN CORPUSCULAR HEMOGLOBIN 30.7 pg (27.0-33.4); MEAN CORPUSCULAR HGB CONC 34.4 g/dL (32.0-36.0); MEAN CORPUSCULAR VOLUME 89 fl (80-97); MONOCYTES % (AUTO) 9.1 % (3-13); RED BLOOD COUNT 4.36 10^6/uL (4.35-5.55); RED CELL DISTRIBUTION WIDTH 14.9 % (11.5-14.0); SEGMENTED NEUTROPHILS % (AUTO) 70.6 % (42-78); WHITE BLOOD COUNT 4.7 10^3/uL (4.0-10.5)
[2016-12-13 16:29] LABS: APPEARANCE,URINE CLEAR; BILIRUBIN,URINE NEGATIVE (NEGATIVE); GLUCOSE, URINE NEGATIVE (NEGATIVE); KETONES,URINE NEGATIVE (NEGATIVE); LEUKOCYTE ESTERASE,URINE NEGATIVE (NEGATIVE); NITRITE,URINE NEGATIVE (NEGATIVE); PROTEIN,URINE NEGATIVE (NEGATIVE); URINE SPECIFIC GRAVITY 1.027; UROBILINOGEN,URINE NEGATIVE mg/dL (<2.0)
[2016-12-13 16:30] LABS: ALANINE AMINOTRANSFERASE 32 U/L (21-72); ALBUMIN 3.4 g/dL (3.5-5.0); ALKALINE PHOSPHATASE 63 U/L (38-126); ANION GAP 7 (5-19); ASPARTATE AMINO TRANSFERASE 22 U/L (17-59); BILIRUBIN,DIRECT 0.3 mg/dL (0.0-0.4); BILIRUBIN,TOTAL 0.4 mg/dL (0.2-1.3); BLOOD UREA NITROGEN 18 mg/dL (7-20); CARBON DIOXIDE 33 mmol/L (22-30); CHLORIDE 102 mmol/L (98-107); CREATININE RESULT 0.96 mg/dL (0.52-1.25); GLUCOSE 81 mg/dL (75-110); LIPASE 155.9 U/L (23-300); POTASSIUM 4.2 mmol/L (3.6-5.0); TOTAL PROTEIN 5.8 g/dL (6.3-8.2)
--- NOTE | 2016-12-13 17:53 | RADIOLOGY REPORT (SQ) ---
EXAM DESCRIPTION: CT ABD/PELVIS WITH IV ONLY COMPLETED DATE/TIME: 12/13/2016 4:57 pm REASON FOR STUDY: Abdominal pain COMPARISON: None. TECHNIQUE: CT scan of the abdomen and pelvis performed using helical scanning technique with dynamic intravenous contrast injection. No oral contrast. Images reviewed with lung, soft tissue, and bone windows. Reconstructed coronal and sagittal MPR images reviewed. Delayed images for evaluation of the urinary system also acquired. All images stored on PACS. All CT scanners at this facility use dose modulation, iterative reconstruction, and/or weight based d osing when appropriate to reduce radiation dose to as low as reasonably achievable (ALARA). [facility]: Dose Right [facility]: CareDose [facility]: Dose Right [facility]: Teradose 4D [facility]: [employer] CONTRAST TYPE AND DOSE: contrast/concentration: Isovue 370.00 mg/ml; Total Contrast Delivered: 89.0 ml; Total Saline Delivered: 40.0 ml RENAL FUNCTION: GFR > 60. RADIATION DOSE: Up-to-date CT equipment and radiation dose reduction techniques were employed. CTDIv ol: 7.6 - 10.7 mGy. DLP: 945 mGy-cm.. LIMITATIONS: None. FINDINGS: LOWER CHEST: Mild left lower lobe subsegmental atelectasis. LIVER: Normal size. Small cyst. No dilated ducts. SPLEEN: Normal size. Small cyst. PANCREAS: No masses. No significant calcifications. No adjacent inflammation or peripancreatic fluid collections. Pancreatic duct not dilated. GALLBLADDER: No identified stones by CT criteria. No inflammatory changes to suggest cholecystitis. ADRENAL GLANDS: No significant masses or asymmetry. RIGHT KIDNEY AND URETER: No solid masses. No significant calcifications. No hydronephrosis or hyd roureter. LEFT KIDNEY AND URETER: No solid masses. 8.8 cm lower pole cyst. No significant calcifications. N o hydronephrosis or hydroureter. AORTA AND VESSELS: No aneurysm. No dissection. Renal arteries, SMA, celiac without stenosis. RETROPERITONEUM: No retroperitoneal adenopathy, hemorrhage or masses. BOWEL AND PERITONEAL CAVITY: Moderate stool burden. No masses or inflammatory changes. No free fluid or peritoneal masses. APPENDIX: Surgically absent. PELVIS: No mass. No free fluid. Normal bladder. ABDOMINAL WALL: No masses. No hernias. BONES: No acute findings. OTHER: No other significant finding. IMPRESSION: NO ACUTE FINDING IN THE ABDOMEN OR PELVIS ON CT SCAN WITH IV CONTRAST.Mild left lower lo be subsegmental atelectasis.Moderate stool burden. TECHNICAL DOCUMENTATION: JOB ID: [id number] Quality ID # [id number]: Final reports with documentation of one or more dose reduction techniques (e.g., Au tomated exposure control, adjustment of the mA and/or kV according to patient size, use of iterative reconstruction technique) 2010 [employer]- All Rights Reserved
[2016-12-13] MEDS ORDERED: MINERAL OIL ENEMA 133 ML PR ONE (17:56)
== END 2016-12-13 21:51 | disposition home or self-care (01) ==
LOC: ER 15:12
DX: K59.00 Constipation, unspecified (principal); G30.9 Alzheimer's disease, unspecified; F02.80 Dementia in other diseases classified elsewhere, unspecified severity, without behavioral disturbance, psychotic disturbance, mood disturbance, and anxiety; Z85.828 Personal history of other malignant neoplasm of skin
CPT/HCPCS: 99285; 51701; 36415; 83690; 85025; 80053; 81001; 71010; 74177; J3490

== ENCOUNTER 2016-12-14 16:08 | Emergency (ER) | payer MEDICARE ==
--- NOTE | 2016-12-14 17:06 | RADIOLOGY REPORT (SQ) ---
EXAM DESCRIPTION: CT HEAD WITHOUT COMPLETED DATE/TIME: 12/14/2016 4:54 pm REASON FOR STUDY: fall COMPARISON: 10/12/2016 TECHNIQUE: Axial images acquired through the brain without intravenous contrast. Images reviewed wi th bone, brain and subdural windows. Images stored on PACS. All CT scanners at this facility use dose modulation, iterative reconstruction, and/or weight based d osing when appropriate to reduce radiation dose to as low as reasonably achievable (ALARA). [facility]: Dose Right [facility]: CareDose [facility]: Dose Right [facility]: Teradose 4D [facility]: [employer] RADIATION DOSE: Up-to-date CT equipment and radiation dose reduction techniques were employed. CTDIv ol: 29.1 mGy. DLP: 629 mGy-cm.mGy. LIMITATIONS: None. FINDINGS: VENTRICLES: Prominent. CEREBRUM: No masses. No hemorrhage. No midline shift. Areas of low density in the white matter mos t likely due to chronic micro-vascular ischemic change. No evidence for acute infarction. CEREBELLUM: No masses. No hemorrhage. No alteration of density. No evidence for acute infarction. EXTRAAXIAL SPACES: Age-related involutional change. No fluid collections. No masses. ORBITS AND GLOBE: No intra- or extraconal masses. Normal contour of globe without masses. CALVARIUM: No fracture. PARANASAL SINUSES: There is mucosal thickening in both maxillary sinuses. SOFT TISSUES: No mass or hematoma. OTHER: No other significant finding. IMPRESSION: CHRONIC CHANGES OF ATROPHY AND MICROVASCULAR ISCHEMIA. NO ACUTE PROCESS. TECHNICAL DOCUMENTATION: JOB ID: [id number] Quality ID # [id number]: Final reports with documentation of one or more dose reduction techniques (e.g., Au tomated exposure control, adjustment of the mA and/or kV according to patient size, use of iterative reconstruction technique) 2010 [employer]- All Rights Reserved
--- NOTE | 2016-12-14 17:07 | RADIOLOGY REPORT (SQ) ---
EXAM DESCRIPTION: CT CERVICAL SPINE WITHOUT COMPLETED DATE/TIME: 12/14/2016 4:54 pm REASON FOR STUDY: fall COMPARISON: 10/12/2016 TECHNIQUE: Axial images acquired through the cervical spine without intravenous contrast. Images re viewed with lung, soft tissue and bone windows. Reconstructed coronal and sagittal MPR images review ed. Images stored on PACS. All CT scanners at this facility use dose modulation, iterative reconstruction, and/or weight based d osing when appropriate to reduce radiation dose to as low as reasonably achievable (ALARA). [facility]: Dose Right [facility]: CareDose [facility]: Dose Right [facility]: Teradose 4D [facility]: [employer] RADIATION DOSE: Up-to-date CT equipment and radiation dose reduction techniques were employed. CTDIv ol: 14.8 mGy. DLP: 357 mGy-cm. mGy. LIMITATIONS: None. FINDINGS: ALIGNMENT: Anatomic. MINERALIZATION: Normal. VERTEBRAL BODIES: No fractures or dislocation. DISCS: No significant disc disease. FACETS, LATERAL MASSES, POSTERIOR ELEMENTS: No fractures. No dislocation. No acute findings. HARDWARE: None in the spine. VISUALIZED RIBS: No fractures. LUNG APICES AND SOFT TISSUES: No significant or acute findings. OTHER: No other significant finding. IMPRESSION: NO ACUTE OR SIGNIFICANT FINDINGS IN THE CERVICAL SPINE. TECHNICAL DOCUMENTATION: JOB ID: [id number] Quality ID # [id number]: Final reports with documentation of one or more dose reduction techniques (e.g., Au tomated exposure control, adjustment of the mA and/or kV according to patient size, use of iterative reconstruction technique) 2010 [employer]- All Rights Reserved
--- NOTE | 2016-12-14 17:19 | ER Document Report ---
ED General - General Chief Complaint: Fall Stated Complaint: FALL Time Seen by Provider: 12/14/16 16:17 Mode of Arrival: Medic Information source: Patient, Emergency Med Personnel, [facility] Records Cannot obtain history due to: Dementia Notes: 66-year-old male history of dementia presents after a mechanical fall striking his head. This is the patient's third fall in the past week. Patient denies any other complaints patient does have moderate to severe dementia TRAVEL OUTSIDE OF THE [place] IN LAST 30 DAYS: No - HPI Onset: Just prior to arrival Onset/Duration: Sudden Quality of pain: No pain Severity: None Pain Level: Denies Associated symptoms: None Exacerbated by: Denies Relieved by: Denies Similar symptoms previously: No Recently seen / treated by doctor: Yes - Related Data Allergies/Adverse Reactions: morphine Adverse Reaction (Unknown, Verified 12/14/16 16:19) Home Medications: Current Home Medications Acetaminophen [Tylenol] 650 mg PO Q6H PRN 12/14/16 [History] Bupropion HCl [Bupropion HCl Sr] 150 mg PO DAILY 12/14/16 [History] Cyanocobalamin (Vitamin B-12) [Vitamin B-12] 5,000 mcg PO QHS 12/14/16 [History] Donepezil HCl 10 mg PO QHS 12/14/16 [History] Fluoxetine HCl 20 mg PO DAILY 12/14/16 [History] Guaifenesin/D-Methorphan Hb/PE [Robafen Cf Liquid] 10 ml PO Q4H PRN 12/14/16 [ History] Hydroxyzine Pamoate [Hydroxyzine Pamoate] 50 mg PO Q6H PRN 12/14/16 [History] Lorazepam [Lorazepam] 1 mg PO Q6H PRN 12/14/16 [History] Magnesium Hydroxide [Milk of Magnesia 30 ml Udcup] 30 ml PO BIDP PRN 12/14/16 [ History] Memantine HCl 10 mg PO BID 12/14/16 [History] Risperidone [Risperidone] 1.5 mg PO BID 12/14/16 [History] Trazodone HCl 100 mg PO QHS 12/14/16 [History] Past Medical History - Social History Smoking Status: Never Smoker Cigarette use (# per day): No Chew tobacco use (# tins/day): No Smoking Education Provided: No Frequency of alcohol use: None Drug Abuse: None Family History: Reviewed & Not Pertinent, Other - Unable to obtain patient has demented Renal/ Medical History: Denies: Hx Peritoneal Dialysis Malignancy Medical History: Reports Hx Skin Cancer Musculoskeltal Medical History: Reports Hx Musculoskeletal Trauma Psychiatric Medical History: Reports: Hx Anxiety, Hx Dementia, Hx Depression Past Surgical History: Reports: Hx Appendectomy, Hx Orthopedic Surgery - Knee surgery about 40 years ago or more according to , Other - Removal of skin cancer - Immunizations Immunizations up to date: Yes Hx Diphtheria, Pertussis, Tetanus Vaccination: Yes Review of Systems - Review of Systems Notes: REVIEW OF SYSTEMS: CONSTITUTIONAL : Denies fever, chills, or sweats. Denies recent illness. EENT: Denies eye, ear, throat, or mouth pain or symptoms. Denies nasal or sinus congestion or discharge. Denies throat, tongue, or mouth swelling or difficulty swallowing. CARDIOVASCULAR: Denies chest pain. Denies palpitations or racing or irregular heart beat. Denies ankle edema. RESPIRATORY: Denies cough, cold, or chest congestion. Denies shortness of breath, difficulty breathing, or wheezing. GASTROINTESTINAL: Denies abdominal pain or distention. Denies nausea, vomiting , or diarrhea. Denies blood in vomitus, stools, or per rectum. Denies black, tarry stools. Denies constipation. GENITOURINARY: Denies difficulty urinating, painful urination, burning, frequency, blood in urine, or discharge. MUSCULOSKELETAL: Denies back or neck pain or stiffness. Denies joint pain or swelling. SKIN: Denies rash, lesions or sores. HEMATOLOGIC : Denies easy bruising or bleeding. LYMPHATIC: Denies swollen, enlarged glands. NEUROLOGICAL: Admits to fall striking head denies confusion or altered mental status. Denies passing out or loss of consciousness. Denies dizziness or lightheadedness. Denies headache. Denies weakness or paralysis or loss of use of either side. Denies problems with gait or speech. Denies sensory loss, numbness, or tingling. Denies seizures. PSYCHIATRIC: Denies anxiety or stress. Denies depression, suicidal ideation, or homicidal ideation. ALL OTHER SYSTEMS REVIEWED AND NEGATIVE. Dictation was performed using [employer] voice recognition software PHYSICAL EXAMINATION: GENERAL: Well-appearing, well-nourished and in no acute distress. HEAD: Atraumatic, normocephalic. EYES: Pupils equal round and reactive to light, extraocular movements intact, sclera anicteric, conjunctiva are normal. ENT: Nares patent, oropharynx clear without exudates. Moist mucous membranes. NECK: Normal range of motion, supple without lymphadenopathy LUNGS: Breath sounds clear to auscultation bilaterally and equal. No wheezes rales or rhonchi. HEART: Regular rate and rhythm without murmurs ABDOMEN: Soft, nontender, nondistended abdomen. No guarding, no rebound. No masses appreciated. Musculoskeletal: Normal range of motion, no pitting or edema. No cyanosis. NEUROLOGICAL: Severe dementia patient is able to ambulate with no difficulty PSYCH: Normal mood, normal affect. SKIN: Warm, Dry, normal turgor, no rashes or lesions noted. Physical Exam - Vital signs Vitals: Temp Pulse Resp BP Pulse Ox 99.2 F 64 16 114/70 98 12/14/16 16:12 12/14/16 16:12 12/14/16 16:12 12/14/16 16:12 12/14/16 16:12 Course - Re-evaluation Re-evalutation: 12/14/16 18:00 Patient has severe dementia , multiple falls, ct noted no acute abnormality Patient otherwise is in no distress will be discharged home at this time After performing a Medical Screening Examination, I estimate there is LOW risk for INTRACRANIAL HEMORRHAGE, ISCHEMIC CVA, MALIGNANT DYSRHYTHMIA, ACUTE CORONARY SYNDROME, MENINGITIS, PULMONARY EMBOLISM, or SEPSIS thus I consider the discharge disposition reasonable. I have reevaluated this patient multiple times and no significant life threatening changes are noted. The patient and I have discussed the diagnosis and risks, and we agree with discharging home with close follow-up with the understanding that symptoms and presentations can change. We also discussed returning to the Emergency Department immediately if new or worsening symptoms occur. We have discussed the symptoms which are most concerning (e.g., changing or worsening pain, weakness, vomiting, fever) that necessitate immediate return. Unfortunately do not expect the patient actually understand these instructions so he will have to rely on the care facility to send him back if there are any other concerns - Vital Signs Vital signs: Temp Pulse Resp BP Pulse Ox 98.1 F 68 18 122/89 H 100 12/14/16 17:47 12/14/16 17:47 12/14/16 17:47 12/14/16 17:47 12/14/16 17:47 - Diagnostic Test Radiology reviewed: Image reviewed, Reports reviewed - No acute abnormality Discharge - Discharge Clinical Impression: Hx of fall Dementia Qualifiers: Dementia type: unspecified type Dementia behavioral disturbance: without behavioral disturbance Qualified Code(s): F03.90 - Unspecified dementia without behavioral disturbance Fall Qualifiers: Encounter type: initial encounter Qualified Code(s): W19.XXXA - Unspecified fall, initial encounter Condition: Stable Disposition: HOME, SELF-CARE Additional Instructions: Follow up with your physician tomorrow for further care or return to the ED IMMEDIATELY if symptoms worsen or new concerns occur. If you cannot afford to follow up with your primary care physician a list of low cost clinics have been provided at the end of your discharge papers as well. Referrals: YUN LUNSFORD MD [Primary Care Provider] - Follow up tomorrow
[2016-12-14 17:49] VITALS: BP 122/89
== END 2016-12-14 18:17 | disposition home or self-care (01) ==
LOC: ER 16:08
DX: F03.90 Unspecified dementia, unspecified severity, without behavioral disturbance, psychotic disturbance, mood disturbance, and anxiety (principal); W19.XXXA Unspecified fall, initial encounter; Z91.81 History of falling; Z88.6 Allergy status to analgesic agent; Z85.828 Personal history of other malignant neoplasm of skin
CPT/HCPCS: 70450; 72125; 99285

== ENCOUNTER 2016-12-15 19:59 | Emergency (ER) | payer MEDICARE ==
--- NOTE | 2016-12-15 20:26 | ER Document Report ---
ED General - General Chief Complaint: Hip Injury Stated Complaint: FALL HEAD INJRY Time Seen by Provider: 12/15/16 20:04 Cannot obtain history due to: Dementia Notes: Patient is a 66-year-old male who is presenting for the third time in less than a week for a fall. He is extremity demented and unable to provide any meaningful history. EMS reports that this was an unwitnessed fall like all the prior occurrences. Patient is apparently complaining of right hip pain although he is having difficulties stating this to me. TRAVEL OUTSIDE OF THE [place] IN LAST 30 DAYS: No - Related Data Allergies/Adverse Reactions: morphine Adverse Reaction (Unknown, Verified 12/14/16 16:19) Past Medical History - General Information source: Emergency Med Personnel - Social History Smoking Status: Unknown if Ever Smoked Chew tobacco use (# tins/day): No Frequency of alcohol use: None Drug Abuse: None Lives with: Detention Family History: Reviewed & Not Pertinent, Other - Unable to obtain patient has demented Renal/ Medical History: Denies: Hx Peritoneal Dialysis Malignancy Medical History: Reports Hx Skin Cancer Musculoskeltal Medical History: Reports Hx Musculoskeletal Trauma Psychiatric Medical History: Reports: Hx Anxiety, Hx Dementia, Hx Depression Past Surgical History: Reports: Hx Appendectomy, Hx Orthopedic Surgery - Knee surgery about 40 years ago or more according to , Other - Removal of skin cancer - Immunizations Immunizations up to date: Yes Hx Diphtheria, Pertussis, Tetanus Vaccination: Yes Review of Systems - Review of Systems -: Yes ROS unobtainable due to patient's medical condition Physical Exam - Vital signs Vitals: Temp Pulse Resp BP Pulse Ox 98.7 F 75 18 132/90 H 99 12/15/16 20:08 12/15/16 20:08 12/15/16 20:08 12/15/16 20:08 12/15/16 20:08 Interpretation: Normal Notes: PHYSICAL EXAMINATION: GENERAL: Frail, elderly, appears older than stated age HEAD: Superficial abrasion to the right frontal scalp with an associated hematoma EYES: Pupils equal round and reactive to light, extraocular movements intact, sclera anicteric, conjunctiva are normal. ENT: nares patent, no oral pharyngeal trauma. No hemotympanum, no Daugherty's sign , no raccoon eyes. NECK: No midline cervical spine tenderness. Patient able to move their head to 45 bilaterally LUNGS: Breath sounds clear to auscultation bilaterally and equal. No wheezes rales or rhonchi. HEART: Regular rate and rhythm without murmurs. CHEST WALL: No ecchymosis over the chest wall. ABDOMEN: Soft, nontender, normoactive bowel sounds. No guarding, no rebound. No abdominal bruising EXTREMITIES: Patient unable to perform range of motion testing due to cognitive impairment. He does have pain on palpation of the right hip but no other obvious areas of pain with palpation. BACK: No midline spinal tenderness, step-offs, or deformities. NEUROLOGICAL: Moves all extremities spontaneously but does not follow commands. PSYCH: Not oriented to person, place, year or location. Making unintelligible speech SKIN: Warm, Dry, normal turgor, no rashes or lesions noted. Course - Re-evaluation Re-evalutation: 12/15/16 20:26 Presentation of a frail, demented, elderly patient in no acute distress, vitals within normal limits after a mechanical fall. No focal neurologic deficits on exam, no evidence of basilar skull fracture on exam without evidence of hemotympanum, raccoon eyes, or periauricular hematoma. No papilledema. Patient is not on anticoagulation. GCS is 15. No loss of consciousness. No episodes of vomiting. However, based on patient's age/dementia a CT of the head has been obtained which is negative for any acute intracranial bleed. Likewise, patient was unable to be clinically cleared due to age by [place] cervical spine criteria. A CT of the cervical spine was also obtained and likewise is negative for any acute fracture. No indication for further imaging of the cervical spine. Chest and abdominal exam are benign without any focal tenderness, shortness of breath, or bruising over the chest or abdominal wall. Patient has no flank tenderness. Patient did also complain of right hip pain so a film will be obtained 12/15/16 21:54 Right hip x-ray does show a subcapital fracture. We do not have orthopedic surgical coverage at this time until the 11th of this month. I have discussed this case with Zoe Win and Dr. Mccormack has accepted the patient in transfer. Of note, given that this is patient's eighth visit to the emergency department for a fall since the end of October and he did sustain a clinically significant injury today, Adult Protective Services has been notified of the concerns regarding patient's care. [id number]-patient reassessed and is stable for transport. 12/16/16 04:00 - Vital Signs Vital signs: Temp Pulse Resp BP Pulse Ox 99.6 F 76 18 140/83 H 96 12/15/16 23:45 12/15/16 23:45 12/15/16 23:45 12/15/16 23:45 12/15/16 23:45 - Diagnostic Test Radiology reviewed: Image reviewed, Reports reviewed Radiology results interpreted by me: 12/15/16 21:55 CT head: No acute intracranial bleed Right hip x-ray: Femoral neck fracture Discharge - Discharge Clinical Impression: Dementia Qualifiers: Dementia type: unspecified type Dementia behavioral disturbance: with behavioral disturbance Qualified Code(s): F03.91 - Unspecified dementia with behavioral disturbance Fall Qualifiers: Encounter type: initial encounter Qualified Code(s): W19.XXXA - Unspecified fall, initial encounter Closed right hip fracture Qualifiers: Encounter type: initial encounter Qualified Code(s): S72.001A - Fracture of unspecified part of neck of right femur, initial encounter for closed fracture Condition: Fair Disposition: On license of [facility]
--- NOTE | 2016-12-15 20:37 | RADIOLOGY REPORT (SQ) ---
EXAM DESCRIPTION: CT HEAD WITHOUT COMPLETED DATE/TIME: 12/15/2016 8:28 pm REASON FOR STUDY: fall COMPARISON: 12/14/2016 TECHNIQUE: Axial images acquired through the brain without intravenous contrast. Images reviewed wi th bone, brain and subdural windows. Images stored on PACS. All CT scanners at this facility use dose modulation, iterative reconstruction, and/or weight based d osing when appropriate to reduce radiation dose to as low as reasonably achievable (ALARA). [facility]: Dose Right [facility]: CareDose [facility]: Dose Right [facility]: Teradose 4D [facility]: Smart Rumble RADIATION DOSE: Up-to-date CT equipment and radiation dose reduction techniques were employed. CTDIv ol: 67.0 mGy. DLP: 2767 mGy-cm.mGy. LIMITATIONS: None. FINDINGS: VENTRICLES: Prominent. CEREBRUM: No masses. No hemorrhage. No midline shift. Areas of low density in the white matter mos t likely due to chronic micro-vascular ischemic change. No evidence for acute infarction. CEREBELLUM: No masses. No hemorrhage. No alteration of density. No evidence for acute infarction. EXTRAAXIAL SPACES: Age-related involutional change. No fluid collections. No masses. ORBITS AND GLOBE: No intra- or extraconal masses. Normal contour of globe without masses. CALVARIUM: No fracture. PARANASAL SINUSES: No fluid or mucosal thickening. SOFT TISSUES: No mass or hematoma. OTHER: No other significant finding. IMPRESSION: CHRONIC CHANGES OF ATROPHY AND MICROVASCULAR ISCHEMIA. NO ACUTE PROCESS. TECHNICAL DOCUMENTATION: JOB ID: [id number] Quality ID # [id number]: Final reports with documentation of one or more dose reduction techniques (e.g., Au tomated exposure control, adjustment of the mA and/or kV according to patient size, use of iterative reconstruction technique) 2010 [employer]- All Rights Reserved
--- NOTE | 2016-12-15 20:38 | RADIOLOGY REPORT (SQ) ---
EXAM DESCRIPTION: CT CERVICAL SPINE WITHOUT COMPLETED DATE/TIME: 12/15/2016 8:28 pm REASON FOR STUDY: fall COMPARISON: 12/14/2016 TECHNIQUE: Axial images acquired through the cervical spine without intravenous contrast. Images re viewed with lung, soft tissue and bone windows. Reconstructed coronal and sagittal MPR images review ed. Images stored on PACS. All CT scanners at this facility use dose modulation, iterative reconstruction, and/or weight based d osing when appropriate to reduce radiation dose to as low as reasonably achievable (ALARA). [facility]: Dose Right [facility]: CareDose [facility]: Dose Right [facility]: Teradose 4D [facility]: Smart Qewz RADIATION DOSE: Up-to-date CT equipment and radiation dose reduction techniques were employed. CTDIv ol: 13.3 mGy. DLP: 298 mGy-cm. mGy. LIMITATIONS: None. FINDINGS: ALIGNMENT: Anatomic. MINERALIZATION: Normal. VERTEBRAL BODIES: No fractures or dislocation. DISCS: Mild multilevel disc space narrowing. There are small posterior osteophytes at C5-C6. FACETS, LATERAL MASSES, POSTERIOR ELEMENTS: No fractures. No dislocation. No acute findings. HARDWARE: None in the spine. VISUALIZED RIBS: No fractures. LUNG APICES AND SOFT TISSUES: No significant or acute findings. OTHER: No other significant finding. IMPRESSION: Mild degenerative changes. No acute findings. TECHNICAL DOCUMENTATION: JOB ID: [id number] Quality ID # [id number]: Final reports with documentation of one or more dose reduction techniques (e.g., Au tomated exposure control, adjustment of the mA and/or kV according to patient size, use of iterative reconstruction technique) 2010 [employer]- All Rights Reserved
--- NOTE | 2016-12-15 20:51 | RADIOLOGY REPORT (SQ) ---
EXAM DESCRIPTION: CHEST SINGLE VIEW COMPLETED DATE/TIME: 12/15/2016 8:43 pm REASON FOR STUDY: PRE OP COMPARISON: 12/13/2016 EXAM PARAMETERS: NUMBER OF VIEWS: One view. TECHNIQUE: Single frontal radiographic view of the chest acquired. RADIATION DOSE: NA LIMITATIONS: None. FINDINGS: LUNGS AND PLEURA: No opacities, masses or pneumothorax. No pleural effusion. MEDIASTINUM AND HILAR STRUCTURES: No masses. Contour normal. HEART AND VASCULAR STRUCTURES: Heart normal in size. Normal vasculature. BONES: No acute findings. HARDWARE: None in the chest. OTHER: No other significant finding. IMPRESSION: NO ACUTE RADIOGRAPHIC FINDING IN THE CHEST. TECHNICAL DOCUMENTATION: JOB ID: [id number]
--- NOTE | 2016-12-15 20:52 | RADIOLOGY REPORT (SQ) ---
EXAM DESCRIPTION: HIP RIGHT AP/LATERAL COMPLETED DATE/TIME: 12/15/2016 8:43 pm REASON FOR STUDY: fall COMPARISON: None. NUMBER OF VIEWS: Two views. TECHNIQUE: AP and frog-leg view of the right hip. LIMITATIONS: None. FINDINGS: MINERALIZATION: Normal. RIGHT HIP: There is a subcapital right hip fracture. OPPOSITE HIP: No fracture or dislocation. No worrisome bone lesions. SOFT TISSUES: No findings. OTHER: No other significant finding. IMPRESSION: Subcapital right hip fracture. TECHNICAL DOCUMENTATION: JOB ID: [id number] [employer]- All Rights Reserved
[2016-12-15] MEDS ORDERED: ACETAMINOPHEN 325 MG TABLET PO ONE (21:43)
[2016-12-15] MEDS ORDERED: LIDOCAINE 5% (700 MG) TRANSDERMAL ADH..PATCH TP ONE (21:43)
[2016-12-15] MEDS ORDERED: FENTANYL CITRATE INJ/PF 100 MCG/2 ML AMPUL IV PRN (22:43)
[2016-12-15 23:46] VITALS: BP 140/83
== END 2016-12-15 23:50 | disposition short-term general hospital (02) ==
LOC: ER 19:59
DX: S72.001A Fracture of unspecified part of neck of right femur, initial encounter for closed fracture (principal); S09.90XA Unspecified injury of head, initial encounter; F03.91 Unspecified dementia, unspecified severity, with behavioral disturbance; W19.XXXA Unspecified fall, initial encounter
CPT/HCPCS: 99285; 96374; 71010; 73502; 70450; 72125; A9270; J3010